=== PATIENT | male | born 1970 | race Caucasian/White ===

== ENCOUNTER 2020-09-13 18:43 | Inpatient (IN) | payer SELFPAY ==
[~2020-09-13] VITALS: Ht 165.1 cm; Wt 62.3 kg
[2020-09-13] MEDS ORDERED: ONDANSETRON PF 4 MG/2 ML VIAL. IVP ONE (19:00)
[2020-09-13] MEDS ORDERED: IV NORMAL SALINE 1,000ML 1,000 ML IV ONE (19:00)
[2020-09-13] MEDS ORDERED: FAMOTIDINE 20 MG/2 ML VIAL IVP ONE (19:00)
[2020-09-13] MEDS ORDERED: PANTOPRAZOLE IV 40 MG VIAL. IVP ONE (19:00)
--- NOTE | 2020-09-13 19:12 | PHYS DOC ---
General Adult EDM: Chief Complaint: ABDOMINAL PAIN HPI: HPI: 49-year-old male presents with epigastric abdominal pain. The patient started to have pain around 3:30 PM. He describes it "like I got punched in the stomach". It is a 5 out of 10 steady discomfort. He has had 4 episodes of vomiting. He denies blood or melena in the vomit. Patient denies fever or chills. He is an alcoholic and daily drinker. His last drink was yesterday evening. He denies history of pancreatitis. He has not had epigastric pain like this before. He denies significant history of reflux. Review of Systems: Review of Systems: Constitutional: Denies fever or chills Eyes: Denies change in visual acuity HENT: Denies nasal congestion or sore throat Respiratory: Denies cough or shortness of breath Cardiovascular: Denies chest pain or edema GI: Epigastric abdominal pain, nausea, vomiting. Denies bloody stools or diarrh ea : Denies dysuria Musculoskeletal: Denies back pain or joint pain Integument: Denies rash Neurologic: Denies headache, focal weakness or sensory changes Endocrine: Denies polyuria or polydipsia Lymphatic: Denies swollen glands Psychiatric: Denies depression or anxiety Current Medications: Current Meds: Current Medications Medications (Trade) Dose Ordered Sig/[facility] Start Time Stop Time Status Last Admin Dose Admin Famotidine (Pepcid Vial) 20 mg 1X ONCE 09/13/20 19:00 09/13/20 19:03 DC Ondansetron HCl (Zofran) 8 mg 1X ONCE 09/13/20 19:00 09/13/20 19:03 DC Pantoprazole Sodium (Protonix Vial) 40 mg 1X ONCE 09/13/20 19:00 09/13/20 19:03 DC Sodium Chloride 1,000 ml @ 1,000 mls/hr 1X ONCE 09/13/20 19:00 09/13/20 19:59 Allergies: Allergies: Allergies Coded Allergies Type Severity Reaction Last Updated Verified No Known Drug Allergies 09/13/20 No Physical Exam: PE: Constitutional: Well developed, well nourished, no acute distress, non-toxic appearance. [] HENT: Normocephalic, atraumatic, bilateral external ears normal, oropharynx moist, no oral exudates, nose normal. [] Eyes: PERRLA, EOMI, conjunctiva normal, no discharge. [] Neck: Normal range of motion, no tenderness, supple, no stridor. [] Cardiovascular:Heart rate regular rhythm, no murmur [] Lungs & Thorax: Bilateral breath sounds clear to auscultation [] Abdomen: Bowel sounds normal, soft, epigastric tenderness with guarding, no masses, no pulsatile masses. [] Skin: Warm, dry, no erythema, no rash. [] Back: No tenderness, no CVA tenderness. [] Extremities: No tenderness, no cyanosis, no clubbing, ROM intact, no edema. [] Neurologic: Bilateral upper extremity tremor. Alert and oriented X 3, normal motor function, normal sensory function, no focal deficits noted. [] Psychologic: Affect normal, judgement normal, mood normal. [] EKG: EKG: Sinus rhythm, rate 83, normal axis, no ST elevations or depressions. [] Radiology/Procedures: Radiology/Procedures: [] Impressions: CT abdomen and pelvis with contrast: Reason for examination: Epigastric abdominal pain. Daily alcohol. Helical images were obtained through the abdomen pelvis with intravenous administration of 75 cc Omnipaque 300. Reconstruction was performed in sagittal and coronal planes. Exposure: One or more of the following individualized dose reduction techniques were utilized for this examination: 1. Automated exposure control 2. Adjustment of the mA and/or kV according to patient size 3. Use of iterative reconstruction technique. Calcified granulomas seen posterior medially at the left lung base. The heart size is normal with no pericardial effusion. The liver shows diffuse fatty infiltration without a focal lesion. No abnormality seen at the spleen, adrenal glands or gallbladder. The pancreas shows no focal mass but there is peripancreatic fluid and possibly some pancreatic edema and these changes would be consistent with pancreatitis. Recommend clinical correlation. The colon shows wall thickening involving the transverse colon, descending colon and sigmoid colon which may reflect colitis. There is no diverticulosis or diverticulitis. No abnormality seen at the stomach or duodenum. Small intestinal tract shows no abnormal dilatation or obstruction. The kidneys show a hypodense lesion consistent with a cyst at the midpole of the left kidney measuring 8 mm in size. No renal calculi, hydronephrosis or obstructive uropathy is seen. No abnormality seen at the bladder, prostate gland or seminal vesicles. Severe degenerative disc disease at the L5-S1 level. No acute bony abnormality seen. IMPRESSION: Fatty liver. Prominent pancreas with some edema and peripancreatic fluid present consistent with pancreatitis. Recommend clinical correlation. Small cyst at the midpole the left kidney. Wall thickening in the transverse, descending and sigmoid colon which may reflect colitis. Severe degenerative disc disease at the L5-S1 disc level. Electronically signed by: Rere Crandall MD (09/13/2020 8:16 PM) [facility] DICTATED AND SIGNED BY: RERE CRADNALL MD DATE: 09/13/202015 CC: TRISTA FINLEY DO; PCP,NO ~ Heart Score: Risk Factors: Risk Factors: DM, Current or recent (<one month) smoker, HTN, HLP, family history of CAD, obesity. Risk Scores: Score 0 - 3: 2.5% MACE over next 6 weeks - Discharge Home Score 4 - 6: 20.3% MACE over next 6 weeks - Admit for Clinical Observation Score 7 - 10: 72.7% MACE over next 6 weeks - Early Invasive Strategies Course & Med Decision Making: Course & Med Decision Making Pertinent Labs and Imaging studies reviewed. (See chart for details) The patient's white count is normal. His labs are significant for a lipase of over 4000. This appears to be acute alcoholic pancreatitis. CT scan is pending. CT scan is consistent with pancreatitis. He also appears to have some colitis. I will admit the patient to the hospital. He is currently n.p.o. we have started him on D5 maintenance fluid. I spoke with Dr. Torres and he has accepted the patient for admission. [] Dragon Disclaimer: Iesha Disclaimer: This electronic medical record was generated, in whole or in part, using a voice recognition dictation system. Departure Departure: Impression: Primary Impression: Pancreatitis, alcoholic, acute Disposition: ADMITTED INPT THIS HOSP Admitting Physician: Nuzhat Torres Condition: STABLE Referrals: PCP,NO (PCP) TRISTA FINLEY DO Sep 13, 2020 19:12
--- NOTE | 2020-09-13 19:24 | RAD ---
Exam: Chest one view INDICATION: Chest pain TECHNIQUE: Frontal view of the chest Comparisons: None FINDINGS: The cardiomediastinal silhouette and pulmonary vessels are within normal limits. The lung and pleural spaces are clear. IMPRESSION: No acute cardiopulmonary process. Electronically signed by: Evan Walker MD (09/13/2020 7:21 PM) [id number]
[2020-09-13] MEDS ORDERED: CONTRAST GIVEN. MC PRN (19:30)
[2020-09-13] MEDS ORDERED: IOHEXOL 300 MG/ML 75 ML VIAL. IV ONE (19:30)
[2020-09-13 19:42] LABS: BASO % 0 % (0-3); CALCIUM 10.2 mg/dL (8.5-10.1); CREATININE 1.2 mg/dL (0.7-1.3); EOS % 0 % (0-3); GFR 64.9; HEMATOCRIT 46.7 % (39.0-53.0); LYMPH # 0.4 x10^3/uL (1.0-4.8); LYMPH % 5 % (24-48); MEAN CORPUSCULAR HEMOGLOBIN 35 pg (25-35); MEAN CORPUSCULAR HGB CONC 34 g/dL (31-37); MEAN CORPUSCULAR VOLUME 101 fL (79-100); MONO # 0.5 x10^3/uL (0.0-1.1); MONO % 6 % (0-9); NEUT # 7.9 x10^3uL (1.8-7.7); NEUT % 89 % (31-73); PLATELET COUNT 143 x10^3/uL (140-400); POTASSIUM 3.5 mmol/L (3.5-5.1); RED BLOOD COUNT 4.61 x10^6/uL (4.30-5.70); RED CELL DISTRIBUTION WIDTH 15.4 % (11.5-14.5); WHITE BLOOD COUNT 8.9 x10^3/uL (4.0-11.0)
[2020-09-13 19:50] LABS: TOTAL BILIRUBIN 1.1 mg/dL (0.2-1.0); TOTAL PROTEIN 8.1 g/dL (6.4-8.2)
[2020-09-13] MEDS ORDERED: MORPHINE SULFATE 4 MG/ML DISP.SYRIN. IV ONE (20:15)
[2020-09-13] MEDS ORDERED: IV DEXTROSE 5% - 0.9 % NACL 1,000 ML IV ONE (20:15)
--- NOTE | 2020-09-13 20:19 | RAD ---
CT abdomen and pelvis with contrast: Reason for examination: Epigastric abdominal pain. Daily alcohol. Helical images were obtained through the abdomen pelvis with intravenous administration of 75 cc Omnipaque 300. Reconstruction was performed in sagittal and coronal planes. Exposure: One or more of the following individualized dose reduction techniques were utilized for this examination: 1. Automated exposure control 2. Adjustment of the mA and/or kV according to patient size 3. Use of iterative reconstruction technique. Calcified granulomas seen posterior medially at the left lung base. The heart size is normal with no pericardial effusion. The liver shows diffuse fatty infiltration without a focal lesion. No abnormality seen at the spleen, adrenal glands or gallbladder. The pancreas shows no focal mass but there is peripancreatic fluid and possibly some pancreatic edema and these changes would be consistent with pancreatitis. Recommend clinical correlation. The colon shows wall thickening involving the transverse colon, descending colon and sigmoid colon which may reflect colitis. There is no diverticulosis or diverticulitis. No abnormality seen at the stomach or duodenum. Small intestinal tract shows no abnormal dilatation or obstruction. The kidneys show a hypodense lesion consistent with a cyst at the midpole of the left kidney measuring 8 mm in size. No renal calculi, hydronephrosis or obstructive uropathy is seen. No abnormality seen at the bladder, prostate gland or seminal vesicles. Severe degenerative disc disease at the L5-S1 level. No acute bony abnormality seen. IMPRESSION: Fatty liver. Prominent pancreas with some edema and peripancreatic fluid present consistent with pancreatitis. Recommend clinical correlation. Small cyst at the midpole the left kidney. Wall thickening in the transverse, descending and sigmoid colon which may reflect colitis. Severe degenerative disc disease at the L5-S1 disc level. Electronically signed by: Rere Boogie MD (09/13/2020 8:16 PM) BETTY
[2020-09-13] MEDS ORDERED: IV DEXTROSE 5 %-0.45 % NACL 1,000 ML IV ONE (21:15)
[2020-09-13] MEDS ORDERED: PIPERACILLIN/TAZOBACTAM 3.375 GM VIAL IV ONE (21:20)
[2020-09-13] MEDS ORDERED: IV NORMAL SALINE 50ML 50 ML ONE (21:20)
[2020-09-13] MEDS ORDERED: PIPERACILLIN/TAZOBACTAM 3.375 GM in IV NORMAL SALINE 50ML 50 ML IV ONE (21:30)
[2020-09-13] MEDS ORDERED: ACETAMINOPHEN 325 MG TABLET PO PRN (22:00)
--- NOTE | 2020-09-13 22:30 | NUR ---
The patient, JOSE LONG, 49 y/o, M admitted by JOSEPH TOMLIN MD, to room 117, was given written information regarding hospital policies, unit procedures and contact persons. Valuables were checked and left with the patient. Physical and social needs assessed. Medical history reviewed. Pt oriented to self, day, location and reason for being here. Pt hallucinating; making motions of eating and smoking. He frequently climbs out of bed with his eyes shut trying to "go because its 6:00." Bed alarm used and 1:1 supervision. Will continue to monitor.
[2020-09-13 23:15] VITALS: BP 176/94
[2020-09-13] MEDS: MORPHINE SULFATE 2 MG/ML DISP.SYRIN. IVP PRN (23:17)
[2020-09-14] VITALS (7 sets, daily range): BP systolic 121–165; BP diastolic 82–110
[2020-09-14] MEDS: ONDANSETRON PF 4 MG/2 ML VIAL. IVP PRN ×2 (00:30→07:24)
[2020-09-14] MEDS: MORPHINE SULFATE 2 MG/ML DISP.SYRIN. IVP PRN ×2 (01:48→07:24)
[2020-09-14] MEDS: HALOPERIDOL LACT 5 MG/ML VIAL. IVP PRN (09:52)
[2020-09-14] MEDS ORDERED: chlordiazePOXIDE HCL 25 MG CAPSULE PO PRN (10:45)
[2020-09-14] MEDS: cloNIDine HCL 0.1 MG TABLET PO PRN ×3 (10:54→13:21)
[2020-09-14] MEDS: diphenhydrAMINE 50 MG/ML VIAL IVP PRN ×2 (10:54→12:12)
[2020-09-14] MEDS: MVI, ADULT NO.4 WITH VIT K 10 ML, THIAMINE INJ 100 MG, FOLIC ACID INJ 1 MG in IV NORMAL... IV SCH (12:12)
[2020-09-14] MEDS: chlordiazePOXIDE HCL 25 MG CAPSULE PO PRN ×2 (13:20→16:13)
[2020-09-14 14:50] LABS: HEMATOCRIT 49.4 % (39.0-53.0); HEMOGLOBIN 16.9 g/dL (13.0-17.5); RED BLOOD COUNT 4.82 x10^6/uL (4.30-5.70); RED CELL DISTRIBUTION WIDTH 15.2 % (11.5-14.5); WHITE BLOOD COUNT 9.8 x10^3/uL (4.0-11.0)
[2020-09-14] MEDS ORDERED: LABETALOL 20 MG/4 ML DISP.SYRIN. IVP PRN (15:15)
--- NOTE | 2020-09-14 15:28 | HP ---
ADMIT DATE: 09/13/2020 HISTORY OF PRESENT ILLNESS: The patient is a 49-year-old male patient who came to the Emergency Room complaining of abdominal pain, mostly in the epigastric area. He started having pain around 3:30 p.m., described it "like I got punched in the stomach." He rated it as 5/10, stated discomfort, has had 4 episodes of vomiting. He denies any blood or melena in the vomitus. He denied any fever or chills. He is an alcoholic and daily drinker. His last drink was the day before yesterday. He denied any history of pancreatitis. He has not had epigastric pain like this before. Denied any significant history of acid reflux. He was extensively investigated in the Emergency Room and has had lab work done including a CBC and a CMP. His CBC was unremarkable. His chemistry showed that the patient has extremely elevated serum lipase of 4138 and his chest x-ray was unremarkable; however, CT scan of the abdomen and pelvis showed the patient has fatty liver. He has also prominent pancreas with some edema and peripancreatic fluid present consistent with pancreatitis, a small cyst at the mid pole of the left kidney as well as thickening of the transverse, descending and sigmoid colon, which may reflect colitis. He has also severe degenerative disk disease at L5-S1 disk level. He was admitted with acute pancreatitis, fatty liver and also acute colitis. We will keep him n.p.o., start him on IV fluid, banana bag, alcohol withdrawal protocol as well as IV Zosyn for possible acute colitis. PAST MEDICAL HISTORY: Unobtainable. PAST SURGICAL HISTORY: Also unobtainable. FAMILY HISTORY: Unremarkable. SOCIAL HISTORY: He is . Apparently, his drinks with him. ALLERGIES: He has no known drug allergies. MEDICATIONS: He is currently on no medications at home. PHYSICAL EXAMINATION: GENERAL: On arrival to the Emergency Room, the patient was tachypneic, was tachycardic, hypertensive, but there was no pallor, jaundice or cyanosis. No lymphadenopathy, no thyromegaly. No jugular venous distention. No lower limb edema. VITAL SIGNS: His heart rate on admission was 108, blood pressure was 164/108, temperature was 96.8, respiratory rate 20, and oxygen saturation was 94%. HEAD, EYES, EARS, NOSE AND THROAT: Showed normocephalic, atraumatic. NECK: Supple. HEART: Showed normal first and second heart sounds. No gallop, rub or murmur. CHEST: Clear to auscultation. No crepitation or rhonchi. ABDOMEN: Distended. Tenderness mostly in the epigastric area. No guarding, however, or rigidity. No organomegaly. No palpable pulsatile masses. NEUROLOGIC: On admission, he was alert and oriented x 3. He has bilateral upper extremity tremors. He has normal motor function, normal sensory function. His affect, judgment and mood were apparently normal. He has had an EKG, which showed that he was in sinus rhythm at a rate of 83 with normal axis, no ST-segment elevation or depression. CT scan of the abdomen and pelvis showed fatty liver, prominent pancreas with some edema and peripancreatic fluid present consistent with pancreatitis. He has also wall thickening of the transverse, descending and sigmoid colon which may reflect colitis, has severe degenerative disk disease at L5-S1 disk level. ASSESSMENT AND PLAN: The patient was admitted with acute alcohol-induced pancreatitis, alcohol withdrawal protocol and alcoholism. He was given IV fluid, morphine, piperacillin and tazobactam, kept n.p.o., started him on alcohol withdrawal protocol. We will monitor his lab works closely and adjust medication accordingly. JOSEPH TOMLIN MD DR: DALE/mikki JOB#: [id number] / [id number]
[2020-09-14 15:54] LABS: CALCIUM 8.5 mg/dL (8.5-10.1); GFR 80.1; POTASSIUM 3.5 mmol/L (3.5-5.1)
[2020-09-14 16:01] LABS: ALBUMIN 3.1 g/dL (3.4-5.0); ALBUMIN/GLOBULIN RATIO 0.9 (1.0-1.7); MAGNESIUM 1.3 mg/dL (1.8-2.4); TOTAL BILIRUBIN 1.7 mg/dL (0.2-1.0); TOTAL PROTEIN 6.4 g/dL (6.4-8.2)
--- NOTE | 2020-09-14 17:16 | EKG ---
[address] [address] Test Date: 2020-09-13 Test Time: 19:18:02 Pat Name: JOSE LONG Department: Room: 117 A Gender: M Document Manager: : 1970 Requested By: TRISTA FINLEY Order Number: [id number] Reading MD: Measurements Intervals [place] Rate: 83 P: -47 MS: 132 QRS: 65 QRSD: 82 T: 43 QT: 392 QTc: 461 Interpretive Statements SINUS RHYTHM OTHERWISE NORMAL ECG RI6.02 Compared to ECG 09/13/2020 19:16:14 No significant changes
[2020-09-14] MEDS: PIPERACILLIN/TAZOBACTAM 3.375 GM in IV NORMAL SALINE 50ML 50 ML IV SCH (18:27)
--- NOTE | 2020-09-14 20:03 | PN ---
DATE: 09/14/2020 SUBJECTIVE: The patient continued to be extremely restless, agitated, hallucination, picks things that are not there. He was treated with multiple doses of clonidine, Ativan and Haldol as well as morphine. PHYSICAL EXAMINATION: GENERAL: When I examined him this afternoon, he was resting flat, sleeping comfortably, in no apparent distress. There was no pallor, jaundice, cyanosis or thyromegaly. No jugular venous distention or limb edema. VITAL SIGNS: His heart rate was 108, blood pressure was 161/93, temperature was 96.8, respiratory rate was 20 and oxygen saturation was 93% on room air. HEAD, EYES, EARS, NOSE AND THROAT: Showed normocephalic, atraumatic. NECK: Supple. HEART: Showed normal first and second heart sounds. No gallop, rub or murmur. CHEST: Showed central trachea, equal bilateral chest expansion, air entry, vesicular sounds. No crepitation or rhonchi. ABDOMEN: Distended, soft, nontender. NEUROLOGIC: He was extremely obtunded. His intake and output were incompletely recorded. LABORATORY DATA: His lab work still pending at the time of this dictation. ASSESSMENT: Acute alcohol-induced pancreatitis, alcoholism with alcohol withdrawal. Has also acute colitis. PLAN: To continue also with Zosyn 3.375 g IV. I would continue to monitor his lab work, particularly his lipase. His agitation improved and has no pain. We can start him on a clear liquid diet and advance as tolerated. JOSEPH TOMLIN MD DR: DALE/mikki JOB#: [id number] / [id number]
[2020-09-15] MEDS: PIPERACILLIN/TAZOBACTAM 3.375 GM in IV NORMAL SALINE 50ML 50 ML IV SCH ×4 (00:21→17:50)
[2020-09-15] MEDS: HALOPERIDOL LACT 5 MG/ML VIAL. IVP PRN ×2 (02:00→17:44)
--- NOTE | 2020-09-15 02:07 | NUR ---
PT with extreme agitation. PT trying to punch and kick multiple staff members. PT given PRNs available. PT less agitated but still intermittently combative. PT will sleep for a few minutes and then wake up swinging his fists and trying to get out of bed.
[2020-09-15 06:11] VITALS: BP 109/80
[2020-09-15 06:46] LABS: HEMATOCRIT 48.6 % (39.0-53.0); HEMOGLOBIN 16.3 g/dL (13.0-17.5); RED BLOOD COUNT 4.74 x10^6/uL (4.30-5.70); RED CELL DISTRIBUTION WIDTH 15.6 % (11.5-14.5); WHITE BLOOD COUNT 11.2 x10^3/uL (4.0-11.0)
[2020-09-15 07:08] LABS: ALBUMIN 2.6 g/dL (3.4-5.0); ALBUMIN/GLOBULIN RATIO 0.7 (1.0-1.7); CALCIUM 7.8 mg/dL (8.5-10.1); CREATININE 1.3 mg/dL (0.7-1.3); GFR 59.2; MAGNESIUM 1.3 mg/dL (1.8-2.4); POTASSIUM 3.1 mmol/L (3.5-5.1); TOTAL BILIRUBIN 1.1 mg/dL (0.2-1.0); TOTAL PROTEIN 6.2 g/dL (6.4-8.2)
[2020-09-15] MEDS: MVI, ADULT NO.4 WITH VIT K 10 ML, THIAMINE INJ 100 MG, FOLIC ACID INJ 1 MG in IV NORMAL... IV SCH (07:54)
[2020-09-15] MEDS: POTASSIUM CHLORIDE 10MEQ 100 ML IV SCH ×4 (08:28→11:11)
[2020-09-15 10:29] VITALS: BP 94/70
--- NOTE | 2020-09-15 12:05 | NUR ---
NURSING NOTE PT WAS ACTING AGGRESSIVE TOWARD STAFF, PUTTING UP FIST, NOT RE-DIRECTABLE AT THIS TIME, DANGER TO SELF, SLURRING WORDS, UNABLE TO FOLLOW COMMANDS. PT ON ALCOHOL WITHDRAWAL PROTOCOL. PT GIVEN PRN 2 MG OF ATIVAN TO HELP PT RELAX. WILL CONTINUE TO MONITOR. SAMARIA MCCLAIN.
[2020-09-15 14:27] VITALS: BP 107/74
[2020-09-15] MEDS ORDERED: IV NORMAL SALINE 1,000ML 1,000 ML IV ONE (15:45)
--- NOTE | 2020-09-15 16:02 | NUR ---
NURSING NOTE PT HR INCREASED. DR TOMLIN NOTIFIED. ORDER OBTAINED FOR IV BOLUS 1L. PT CIWA CURRENTLY 10. WILL ADMINISTER PRN 2MG ATIVAN FOR AGITATION. SAMARIA MCCLAIN.
--- NOTE | 2020-09-15 17:44 | NUR ---
NURSING NOTE PT VERY AGITATED AT THIS TIME, ATTEMPTING TO PULL OUT IV, RESTLESS IN THE BED, CONFUSED. PT HAND MITTENS PLACED FOR PROTECTION AND IV MAINTENANCE, PRN HALDOL GIVEN FOR AGITATION AND RESTLESSNESS. WILL CONTINUE TO MONITOR. SAMARIA MCCLAIN.
[2020-09-15 17:47] VITALS: BP 110/78
--- NOTE | 2020-09-15 19:32 | PN ---
DATE: 09/15/2020 SUBJECTIVE: The patient is resting, slightly propped up, sleeping comfortably. Apparently, he continued to be agitated, restless and continued to require Ativan for alcohol withdrawal protocol. PHYSICAL EXAMINATION: GENERAL: When I examined him, he looked well and was clearly in no apparent respiratory distress. No pallor, jaundice, cyanosis or thyromegaly. No jugular venous distention. No limb edema. VITAL SIGNS: His heart rate was 125, blood pressure was 94/70, temperature was 98.1, respiratory rate was 22 and oxygen saturation was 93%. HEAD, EYES, EARS, NOSE AND THROAT: Showed normocephalic, atraumatic. NECK: Supple. HEART: Showed normal first and second heart sounds with no gallop or murmur. CHEST: Clear to auscultation. No crepitation or rhonchi. ABDOMEN: Distended, soft, nontender. NEUROLOGIC: He was sleepy, but arousable. All his cranial nerves are intact. He moves extremities without difficulty. His intake was 1125, output was 500. LABORATORY DATA: His white cell count was 11,200, hemoglobin 16, hematocrit 48, MCV 103 and platelet count of 50,000. His chemistry showed a serum sodium 136, potassium 3.1, chloride 99, bicarbonate 25, anion gap of 12, BUN 13, creatinine 1.3, estimated GFR was 59 mL per minute. His glucose was 97, calcium was 7.8. Total bilirubin, AST, ALT, alkaline phosphatase were normal. Total protein 6.2, albumin was 2.6. His serum lipase is trending down, although it is still high at 3858. ASSESSMENT: 1. Acute alcohol-induced pancreatitis. 2. Alcoholism and alcohol withdrawal. 3. Acute colitis. 4. Hypokalemia. The patient continues to be on alcohol withdrawal protocol. He continues to be on Zosyn 3.375 g IV every 6 hours. Continue with the banana bag. We will monitor his electrolytes and hopefully if his lipase normalize tomorrow, we can start him on a clear liquid and advance diet as tolerated. JOSEPH TOMLIN MD DR: DALE/mikki JOB#: [id number] / [id number]
[2020-09-15 20:28] VITALS: BP 92/60
[2020-09-15] MEDS: LACTOBACILLUS RHAMNOSUS GG 1 CAPSULE. PO SCH (21:00)
[2020-09-15] MEDS: POTASSIUM CL 40MEQ IN 0.9%NACL 1,000 ML IV SCH (21:51)
[2020-09-15 22:59] VITALS: BP 100/68
[2020-09-16] MEDS: PIPERACILLIN/TAZOBACTAM 3.375 GM in IV NORMAL SALINE 50ML 50 ML IV SCH ×4 (00:01→17:26)
--- NOTE | 2020-09-16 04:31 | NUR ---
Mitts removed at 2129 for replacement of IV. PT has been less agitated tonight, requiring less PRN Ativan. PT stated he wants to go home. PT unable to stand unassisted at this time. PT able to express need to void; however, this occurs after he has voided/following BMs. PT mostly cooperative. PT states he has had this cough for 15 years due to smoking. PT redirected when trying to climb out of bed.
[2020-09-16] MEDS: MVI, ADULT NO.4 WITH VIT K 10 ML, THIAMINE INJ 100 MG, FOLIC ACID INJ 1 MG in IV NORMAL... IV SCH (06:59)
[2020-09-16] MEDS: LACTOBACILLUS RHAMNOSUS GG 1 CAPSULE. PO SCH ×2 (07:04→21:33)
[2020-09-16 07:27] VITALS: BP 110/71
--- NOTE | 2020-09-16 08:47 | NUR ---
NURSING NOTE PT MORE AWAKE NOW, A&O TO NAME, YEAR, AND PLACE. PT IS CALM AND COOPERATIVE WITH CARES THIS AM. PT UP AND TO THE SHOWER, BRUSHED TEETH, LINEN CHANGE, HAD LARGE BM. PT CURRENTLY RESTING IN BED, CIWA SCORE OF 8 THIS AM. PT VERBALIZED THAT HE WANTS TO GO HOME TODAY. PT WAS NOT SURE WHY HE WAS HERE, EDUCATED PT ON PANCREATITIS AND ALCOHOL WITHDRAWAL. WILL CONTINUE TO MONITOR. SAMARIA MCCLAIN.
--- NOTE | 2020-09-16 10:14 | NUR ---
NURSING NOTE PT SITTING UP IN THE BED, PT HAS PERSISTENT/CONTINUOS COUGH AND SPITTING UP SECRETIONS. DR TOMLIN NOTIFIED. ORDER OBTAINED FOR CHEST XRAY. PT IV FLUIDS HELD AT THIS TIME FOR POTENTIAL FLUID OVERLOAD. SAMARIA MCCLAIN.
[2020-09-16 10:37] LABS: ALBUMIN 2.2 g/dL (3.4-5.0); ALBUMIN/GLOBULIN RATIO 0.6 (1.0-1.7); CALCIUM 7.1 mg/dL (8.5-10.1); CREATININE 1.3 mg/dL (0.7-1.3); GFR 59.2; POTASSIUM 3.2 mmol/L (3.5-5.1); TOTAL BILIRUBIN 0.9 mg/dL (0.2-1.0); TOTAL PROTEIN 5.9 g/dL (6.4-8.2)
[2020-09-16] MEDS ORDERED: POTASSIUM CHLORIDE 20 MEQ TABLET.ER. PO ONE ×2 (11:00→13:30)
[2020-09-16] MEDS: POTASSIUM CL 40MEQ IN 0.9%NACL 1,000 ML IV SCH (11:05)
--- NOTE | 2020-09-16 12:52 | NUR ---
NURSING NOTE PT INCREASED WOB, PT VITALS OBTAINED, OXYGEN 84%, PT PLACED ON 2L OF OXYGEN. DR TOMLIN HERE, NOTIFIED. WILL ASSESS PT. SAMARIA MCCLAIN.
[2020-09-16 12:57] VITALS: BP 129/85
--- NOTE | 2020-09-16 13:08 | NUR ---
NURSING NOTE CONSULT CONSULT CARDIOLOGY CALLED FOR TACHYCARDIA AND POSSIBLE HEART FAILURE. SAMARIA MCCLAIN.
--- NOTE | 2020-09-16 13:12 | RAD ---
Examination: PORTABLE CHEST 1V History: Reason: COUGH, SOA, PHLEGM / Spl. Instructions: / History: Comparison/Correlation: 09/13/2020 AP view of the chest Findings: Upright portable frontal view chest was obtained. Heart size and pulmonary vessels are normal. No infiltrate or pleural effusion. No pneumothorax. Bony structures unremarkable Impression: No active disease. Electronically signed by: Hany Rene MD (09/16/2020 1:09 PM) [id number]
[2020-09-16] MEDS ORDERED: ALBUTEROL SULFATE 2.5 MG/3 ML NEBU. NEB PRN (13:15)
[2020-09-16 13:25] LABS: BASO % 0 % (0-3); EOS % 0 % (0-3); HEMATOCRIT 38.7 % (39.0-53.0); HEMOGLOBIN 13.1 g/dL (13.0-17.5); LYMPH # 0.3 x10^3/uL (1.0-4.8); LYMPH % 4 % (24-48); MEAN CORPUSCULAR HEMOGLOBIN 35 pg (25-35); MEAN CORPUSCULAR HGB CONC 34 g/dL (31-37); MEAN CORPUSCULAR VOLUME 103 fL (79-100); MONO # 0.7 x10^3/uL (0.0-1.1); MONO % 8 % (0-9); NEUT # 7.9 x10^3uL (1.8-7.7); NEUT % 88 % (31-73); PLATELET COUNT 59 x10^3/uL (140-400); RED BLOOD COUNT 3.78 x10^6/uL (4.30-5.70); RED CELL DISTRIBUTION WIDTH 15.4 % (11.5-14.5); WHITE BLOOD COUNT 8.9 x10^3/uL (4.0-11.0)
[2020-09-16] MEDS: IPRATRPIUM/ALBUTEROL 0.5/2.5MG 3 ML NEBU. NEB SCH ×2 (13:28→20:59)
[2020-09-16] MEDS ORDERED: methylPREDNISolone SOD SUCC PF 125 MG/2 ML VIAL. IV ONE (13:30)
[2020-09-16] MEDS ORDERED: FUROSEMIDE 40 MG/4 ML VIAL IVP ONE (13:30)
[2020-09-16] MEDS ORDERED: IPRATRPIUM/ALBUTEROL 0.5/2.5MG 3 ML NEBU. ONE (13:42)
[2020-09-16 13:51] LABS: BGAS PH 7.32 (7.35-7.46)
--- NOTE | 2020-09-16 13:53 | EKG ---
[address] [address] Test Date: 2020-09-16 Test Time: 13:12:39 Pat Name: JOSE LONG Department: Room: 117 A Gender: M Chain Saw Driver: : 1970 Requested By: JOSEPH TOMLIN Order Number: [id number] Reading MD: Measurements Intervals [place] Rate: 138 P: -53 TX: 134 QRS: 76 QRSD: 76 T: 61 QT: 272 QTc: 412 Interpretive Statements SUPRAVENTRICULAR TACHYCARDIA QRS(T) CONTOUR ABNORMALITY CONSIDER ANTEROLATERAL MYOCARDIAL DAMAGE CONSIDER INFERIOR MYOCARDIAL DAMAGE POSSIBLY ABNORMAL ECG RI6.01 No previous ECG available for comparison
[2020-09-16 14:04] VITALS: BP 136/88
[2020-09-16] MEDS: ACETAMINOPHEN 325 MG TABLET PO PRN (14:06)
--- NOTE | 2020-09-16 16:00 | NUR ---
NURSING NOTE DR TOMLIN NOTIFIED OF ELEVATED DDIMER. PT REEVALUATED AT BEDSIDE WITH PHYSICIAN. PT CURRENTLY RESTING COMFORTABLY, NO ORDERS OBTAINED. SAMARIA MCCLAIN.
--- NOTE | 2020-09-16 16:59 | PN ---
DATE: 09/16/2020 SUBJECTIVE: The patient is resting, propped up, clearly very tachypneic, hypoxic, tachycardic. He has had recurrent bouts of cough. Chest examination showed he is tight and wheezy. PHYSICAL EXAMINATION: GENERAL: When I examined him, there was no pallor, jaundice or cyanosis. No lymphadenopathy, no thyromegaly. No jugular venous distention. No lower limb edema. VITAL SIGNS: However, his heart rate was 146, blood pressure was 129/85, temperature was 99.2, respiratory rate was 28 and his oxygen saturation was only 90% on 2 liters of oxygen. HEAD, EYES, EARS, NOSE AND THROAT: Normocephalic, atraumatic. NECK: Supple. HEART: Showed distant first and second heart sounds. No gallop, rub or murmur. CHEST: Shows central trachea, equally reduced expansion, reduced air entry, vesicular sounds with bilateral scattered rhonchi. I could not appreciate any crepitation. ABDOMEN: Distended, soft with tenderness mostly in epigastric area. NEUROLOGIC: He is lethargic, but arousable. All cranial nerves are intact. He moves extremities without difficulty. His intake over the last 24 hours was 1270, output was 750. LABORATORY DATA: His CBC yesterday showed a white cell count of 11,200, hemoglobin 16, hematocrit 48, MCV 103 and platelet count of 50,000. His serum sodium was 139, potassium 3.2, chloride 104, bicarbonate 23, anion gap of 12, BUN 16, creatinine 1.3, estimated GFR was 59 mL per minute, his glucose 101, calcium 7.1. Total bilirubin, AST, ALT, alkaline phosphatase were normal. Total protein 5.9, albumin 2.2 and his lipase is down to 1717. His chest x-ray showed markedly hyperinflated lungs, cardiomegaly and upper lobe cephalization consistent probably with acute pulmonary edema with chronic obstructive pulmonary disease exacerbation. ASSESSMENT AND PLAN: Acute alcohol-induced pancreatitis, resolving. The patient has now either aspiration pneumonia or chronic obstructive pulmonary disease exacerbation versus acute diastolic congestive heart failure. We held all his IV fluid. We will start him on Solu-Medrol 125 mg IV stat and then 40 mg every 8 hours. We will treat him with Lasix 40 mg once a day. Repeat blood gases, CBC, BMP. We will check his 12-lead EKG, troponin as well as D-dimer and BNP and he was started on DuoNeb and albuterol 2.5 mg by nebulizer every 2 hours as needed. I have also consulted the Cardiology team and I did speak with the bicycle repair technician to stat read his chest x-ray to assist with his management. JOSEPH TOMLIN MD DR: DALE/mikki JOB#: [id number] / [id number]
--- NOTE | 2020-09-16 19:14 | NUR ---
PT appeared to be resting comfortably with television turned on while making walking rounds with RN. Mounika Becerra CNA (1:1 sitter) in room.
[2020-09-16 19:48] VITALS: BP 117/81
[2020-09-16] MEDS: POTASSIUM CHLORIDE 20 MEQ TABLET.ER. PO SCH (21:33)
[2020-09-16] MEDS: methylPREDNISolone SOD SUCC PF 40 MG/ML VIAL. IV SCH (21:33)
[2020-09-17] MEDS: PIPERACILLIN/TAZOBACTAM 3.375 GM in IV NORMAL SALINE 50ML 50 ML IV SCH ×2 (00:15→05:57)
[2020-09-17 00:36] VITALS: BP 118/78
[2020-09-17] MEDS: ACETAMINOPHEN 325 MG TABLET PO PRN (01:13)
[2020-09-17] MEDS: NICOTINE 14MG PATCH. TD PRN ×2 (01:48→08:53)
[2020-09-17] MEDS: IPRATRPIUM/ALBUTEROL 0.5/2.5MG 3 ML NEBU. NEB SCH ×2 (04:48→10:04)
[2020-09-17 05:51] VITALS: BP 123/80
[2020-09-17] MEDS: methylPREDNISolone SOD SUCC PF 40 MG/ML VIAL. IV SCH (05:57)
[2020-09-17 06:30] LABS: BASO % 0 % (0-3); EOS % 0 % (0-3); HEMATOCRIT 36.8 % (39.0-53.0); HEMOGLOBIN 12.4 g/dL (13.0-17.5); LYMPH # 0.2 x10^3/uL (1.0-4.8); LYMPH % 3 % (24-48); MEAN CORPUSCULAR HEMOGLOBIN 35 pg (25-35); MEAN CORPUSCULAR HGB CONC 34 g/dL (31-37); MEAN CORPUSCULAR VOLUME 104 fL (79-100); MONO # 0.4 x10^3/uL (0.0-1.1); MONO % 5 % (0-9); NEUT # 7.5 x10^3uL (1.8-7.7); NEUT % 92 % (31-73); PLATELET COUNT 75 x10^3/uL (140-400); RED BLOOD COUNT 3.54 x10^6/uL (4.30-5.70); RED CELL DISTRIBUTION WIDTH 15.7 % (11.5-14.5); WHITE BLOOD COUNT 8.1 x10^3/uL (4.0-11.0)
[2020-09-17 06:38] LABS: ALBUMIN 2.4 g/dL (3.4-5.0); ALBUMIN/GLOBULIN RATIO 0.6 (1.0-1.7); CREATININE 1.2 mg/dL (0.7-1.3); GFR 64.9; TOTAL BILIRUBIN 0.9 mg/dL (0.2-1.0); TOTAL PROTEIN 6.6 g/dL (6.4-8.2)
[2020-09-17] MEDS ORDERED: MAGNESIUM SULFATE 1GM 100 ML IV ONE (07:45)
--- NOTE | 2020-09-17 08:15 | PDOC2 ---
CARDIAC CONSULT DATE OF CONSULT DOS: DATE: 09/17/20 TIME: 08:11 REASON FOR CONSULT Reason for Consult CHF REFERRING PHYSICIAN Referring Physician Dr. Torres SOURCE Source: Chart review, Patient HPI History of Present Illness This is a 49 yo male who presented secondary to abdominal pain and vomiting. Further imaging notable for pancreatitis. Yesterday, developed some shortness of breath. Consult obtained for possible CHF due to fluid overload as patient had received multiple liters of fluid due to pancreatitis and ETOH withdrawal. IV Lasix was administered. Patient diuresed and is feel well this morning. PAST MEDICAL HISTORY Hepatobiliary: Other (pancreatitis ) Psych: Addictions (ETOH) PAST SURGICAL HISTORY Past Surgical History: Other (jaw surgery ) FAMILY HISTORY Family History: Heart Disease, High Cholestrol, Hypertension SOCIAL HISTORY ALCOHOL: heavy Drugs: Other (h/o heavy polysubstance abuse but has been clean since 1998) Lives: with Family CURRENT MEDICATIONS Current Medications Current Medications Sodium Chloride 1,000 ml @ 1,000 mls/hr 1X ONCE IV Last administered on 09/13at 19:12; Start 09/13/20 at 19:00; Stop 09/13/20 at 19:59; Status DC Ondansetron HCl (Zofran) 8 mg 1X ONCE IVP Last administered on 09/13/20at 19:15; Start 09/13/20 at 19:00; Stop 09/13/20 at 19:03; Status DC Pantoprazole Sodium (Protonix Vial) 40 mg 1X ONCE IVP Last administered on 09/13/20at 19:18; Start 09/13/20 at 19:00; Stop 09/13/20 at 19:03; Status DC Famotidine (Pepcid Vial) 20 mg 1X ONCE IVP Last administered on 09/13/20at 19:16; Start 09/13/20 at 19:00; Stop 09/13/20 at 19:03; Status DC Iohexol (Omnipaque 300 Mg/ml) 75 ml 1X ONCE IV Last administered on 09/13/20at 19:41; Start 09/13/20 at 19:30; Stop 09/13/20 at 19:31; Status DC Info (Do NOT chart on this entry -- for MONITORING) 1 each PRN DAILY PRN MC SEE COMMENTS; Start 09/13/20 at 19:30; Stop 09/15/20 at 19:29; Status DC Dextrose/Sodium Chloride 1,000 ml @ 75 mls/hr 1X ONCE IV Last administered on 09/15/20at 00:00; Start 09/13/20 at 20:15; Stop 09/14/20 at 09:34; Status DC Morphine Sulfate (Morphine 4mg Syringe) 4 mg 1X ONCE IV Last administered on 09/13/20at 21:12; Start 09/13/20 at 20:15; Stop 09/13/20 at 20:21; Status DC Dextrose/Sodium Chloride 1,000 ml @ 75 mls/hr 1X ONCE IV Last administered on 09/13/20at 21:07; Start 09/13/20 at 21:15; Stop 09/14/20 at 10:34; Status DC Piperacillin Sod/ Tazobactam Sod 3.375 gm/Sodium Chloride 50 ml @ 100 mls/hr 1X ONCE IV Last administered on 09/13/20at 21:22; Start 09/13/20 at 21:30; Stop 09/13/20 at 21:59; Status DC Sodium Chloride 50 ml @ As Directed STK-MED ONCE .ROUTE ; Start 09/13/20 at 21:20; Stop 09/13/20 at 21:21; Status DC Piperacillin Sod/ Tazobactam Sod (Zosyn) 3.375 gm STK-MED ONCE IV ; Start 09/13/20 at 21:20; Stop 09/13/20 at 21:21; Status DC Ondansetron HCl (Zofran) 4 mg PRN Q4HRS PRN IVP NAUSEA/VOMITING Last administered on 09/14/20at 07:24; Start 09/13/20 at 22:00; Stop 09/14/20 at 21:59; Status DC Morphine Sulfate (Morphine 2mg Syringe) 2 mg PRN Q2HR PRN IVP PAIN Last administered on 09/14/20at 07:24; Start 09/13/20 at 22:00; Stop 09/14/20 at 21:59; Status DC Acetaminophen (Tylenol) 650 mg PRN Q4HRS PRN PO FEVER > 100.3'F; Start 09/13/20 at 22:00; Stop 09/14/20 at 21:59; Status DC Lorazepam (Ativan Inj) 2 mg PRN Q1HR PRN IVP agitation,w/drawal 1st choice Last administered on 09/16/20at 14:05; Start 09/13/20 at 22:00 Haloperidol Lactate (Haldol) 5 mg PRN Q4HRS PRN IVP AGITATION, 2nd choice Last administered on 09/15/20at 17:44; Start 09/14/20 at 09:45 Multivitamins/ Minerals 10 ml/ Thiamine HCl 100 mg/Folic Acid 1 mg/Sodium Chloride 1,011.2 ml @ 100 mls/ hr DAILY IV Last administered on 09/16/20at 06:59; Start 09/14/20 at 12:00; Stop 09/20/20 at 11:59 Chlordiazepoxide (Librium) 50 mg PRN Q1HR PRN PO For CIWA 8-14; Start 09/14/20 at 10:45; Stop 09/17/20 at 07:55; Status DC Chlordiazepoxide (Librium) 100 mg PRN Q1HR PRN PO For CIWA 15 or greater Last administered on 09/14/20at 16:13; Start 09/14/20 at 10:45; Stop 09/17/20 at 07:55; Status DC Lorazepam (Ativan Inj) 4 mg PRN Q1HR PRN IV For CIWA 15 or greater Last administered on 09/15/20at 06:00; Start 09/14/20 at 10:45 Diphenhydramine HCl (Benadryl) 25 mg PRN Q15MIN PRN IVP EPS symptoms 2'Haldol admin Last administered on 09/14/20at 12:12; Start 09/14/20 at 10:45 Clonidine HCl (Catapres) 0.1 mg PRN Q1HR PRN PO SBP>180 OR DBP>100, MR X 3 Last administered on 09/14/20at 13:21; Start 09/14/20 at 10:45; Stop 09/17/20 at 07:55; Status DC Piperacillin Sod/ Tazobactam Sod 3.375 gm/Sodium Chloride 50 ml @ 100 mls/hr Q6HRS IV Last administered on 09/17/20at 05:57; Start 09/14/20 at 18:00; Stop 09/17/20 at 07:55; Status DC Labetalol HCl (Normodyne) 20 mg PRN Q4HRS PRN IVP HYPERTENSION Last administered on 09/14/20at 15:23; Start 09/14/20 at 15:15 Potassium Chloride 100 ml @ 100 mls/hr Q1H IV Last administered on 09/15/20at 11:11; Start 09/15/20 at 08:30; Stop 09/15/20 at 12:29; Status DC Lactobacillus Rhamnosus (Culturelle) 1 cap BID PO Last administered on 09/16/20at 21:33; Start 09/15/20 at 21:00; Stop 09/17/20 at 07:47; Status DC Sodium Chloride 1,000 ml @ 1,000 mls/hr 1X ONCE IV Last administered on 09/15/20at 16:07; Start 09/15/20 at 15:45; Stop 09/15/20 at 16:44; Status DC Potassium Chloride/Sodium Chloride 1,000 ml @ 75 mls/hr [id number] IV Last administered on 09/15/20at 21:51; Start 09/15/20 at 21:45; Stop 09/16/20 at 17:38; Status DC Potassium Chloride (Klor-Con) 40 meq 1X ONCE PO Last administered on 0at 11:12; Start 09/16/20 at 11:00; Stop 09/16/20 at 11:01; Status DC Albuterol/ Ipratropium (Duoneb) 3 ml RTQID NEB Last administered on 09/17/20at 04:48; Start 09/16/20 at 16:00 Furosemide (Lasix) 40 mg 1X ONCE IVP Last administered on 09/16/20at 13:31; Start 09/16/20 at 13:30; Stop 09/16/20 at 13:31; Status DC Potassium Chloride (Klor-Con) 40 meq 1X ONCE PO Last administered on 09/16/20at 13:32; Start 09/16/20 at 13:30; Stop 09/16/20 at 13:31; Status DC Methylprednisolone Sodium Succinate (SOLU-Medrol 125MG VIAL) 125 mg 1X ONCE IV Last administered on 09/16/20at 13:31; Start 09/16/20 at 13:30; Stop 09/16/20 at 13:31; Status DC Methylprednisolone Sodium Succinate (SOLU-Medrol 40MG VIAL) 40 mg Q8HRS IV Last administered on 09/17/20at 05:57; Start 09/16/20 at 22:00 Linezolid 300 ml @ 300 mls/hr Q12H IV Last administered on 09/17/20at 01:13; Start 09/16/20 at 13:00; Stop 09/17/20 at 07:55; Status DC Albuterol Sulfate (Ventolin) 2.5 mg PRN Q2HR PRN NEB SHORTNESS OF BREATH; Start 09/16/20 at 13:15 Albuterol/ Ipratropium (Duoneb) 3 ml STK-MED ONCE .ROUTE ; Start 09/16/20 at 13:42; Stop 09/16/20 at 13:42; Status DC Acetaminophen (Tylenol) 650 mg PRN Q6HRS PRN PO PAIN FEVER Last administered on 09/17/20at 01:13; Start 09/16/20 at 14:15 Potassium Chloride (Klor-Con) 20 meq TID PO Last administered on 09/16/20at 21:33; Start 09/16/20 at 21:00 Nicotine (Nicoderm Cq 14mg Patch) 1 patch PRN DAILY PRN TD SMOKING CESSATION Last administered on 09/17/20at 01:48; Start 09/17/20 at 01:30 Magnesium Sulfate 100 ml @ 100 mls/hr 1X ONCE IV ; Start 09/17/20 at 07:45; Stop 09/17/20 at 08:44 ALLERGIES Allergies: Coded Allergies: No Known Drug Allergies (Unverified , 09/13/20) ROS Review of Systems 14 point ROS conducted with pertinent positives noted above in HPI PHYSICAL EXAM General: Alert, Oriented X3, Cooperative, No acute distress HEENT: Atraumatic, Mucous membr. moist/pink Lungs: Clear to auscultation Heart: Regular rate (tele ST) Abdomen: Soft, No tenderness Extremities: No edema, Normal pulses Skin: No breakdown Neuro: Normal speech, Sensation intact, Other (tremors ) Psych/Mental Status: Mental status NL, Mood NL MUSCULOSKELETAL: Osteoarthritic changes both hands VITALS Vital Signs Vital Signs Date Time Temp Pulse Resp B/P (MAP) Pulse Ox O2 Delivery O2 Flow Rate FiO2 09/17/20 05:51 97.5 97 20 123/80 (94) 96 Nasal Cannula 2.0 LABS LABS Laboratory Tests Test 09/15/20 13:39 09/16/20 10:15 09/16/20 13:04 09/16/20 13:09 Potassium Level 3.5 mmol/L (3.5-5.1) 3.2 mmol/L (3.5-5.1) Sodium Level 139 mmol/L (136-145) Chloride Level 104 mmol/L (98-107) Carbon Dioxide Level 23 mmol/L (21-32) Anion Gap 12 (6-14) Blood Urea Nitrogen 16 mg/dL (8-26) Creatinine 1.3 mg/dL (0.7-1.3) Estimated GFR (Cockcroft-Gault) 59.2 BUN/Creatinine Ratio 12 (6-20) Glucose Level 101 mg/dL (70-99) Calcium Level 7.1 mg/dL (8.5-10.1) Total Bilirubin 0.9 mg/dL (0.2-1.0) Aspartate Amino Transf (AST/SGOT) 41 U/L (15-37) Alanine Aminotransferase (ALT/SGPT) 18 U/L (16-63) Alkaline Phosphatase 74 U/L (46-116) Total Protein 5.9 g/dL (6.4-8.2) Albumin 2.2 g/dL (3.4-5.0) Albumin/Globulin Ratio 0.6 (1.0-1.7) Lipase 1717 U/L (73-393) Blood Gas pH 7.32 (7.35-7.46) Blood Gas PCO2 46 mmHg (35-46) Blood Gas PO2 56 mmHg (80-100) Blood Gas HCO3 24 mmol/L (21-28) Arterial Bld O2 Saturation (Calc) 85 % (92-99) FiO2 28 % Troponin I Quantitative 0.022 ng/mL (0-0.055) YV-Ozz-X-Type Natriuretic Peptide 328 pg/mL (0-124) Test 09/16/20 13:23 09/17/20 06:12 White Blood Count 8.9 x10^3/uL (4.0-11.0) 8.1 x10^3/uL (4.0-11.0) Red Blood Count 3.78 x10^6/uL (4.30-5.70) 3.54 x10^6/uL (4.30-5.70) Hemoglobin 13.1 g/dL (13.0-17.5) 12.4 g/dL (13.0-17.5) Hematocrit 38.7 % (39.0-53.0) 36.8 % (39.0-53.0) Mean Corpuscular Volume 103 fL (79-100) 104 fL (79-100) Mean Corpuscular Hemoglobin 35 pg (25-35) 35 pg (25-35) Mean Corpuscular Hemoglobin Concent 34 g/dL (31-37) 34 g/dL (31-37) Red Cell Distribution Width 15.4 % (11.5-14.5) 15.7 % (11.5-14.5) Platelet Count 59 x10^3/uL (140-400) 75 x10^3/uL (140-400) Neutrophils (%) (Auto) 88 % (31-73) 92 % (31-73) Lymphocytes (%) (Auto) 4 % (24-48) 3 % (24-48) Monocytes (%) (Auto) 8 % (0-9) 5 % (0-9) Eosinophils (%) (Auto) 0 % (0-3) 0 % (0-3) Basophils (%) (Auto) 0 % (0-3) 0 % (0-3) Neutrophils # (Auto) 7.9 x10^3uL (1.8-7.7) 7.5 x10^3uL (1.8-7.7) Lymphocytes # (Auto) 0.3 x10^3/uL (1.0-4.8) 0.2 x10^3/uL (1.0-4.8) Monocytes # (Auto) 0.7 x10^3/uL (0.0-1.1) 0.4 x10^3/uL (0.0-1.1) Eosinophils # (Auto) 0.0 x10^3/uL (0.0-0.7) 0.0 x10^3/uL (0.0-0.7) Basophils # (Auto) 0.0 x10^3/uL (0.0-0.2) 0.0 x10^3/uL (0.0-0.2) D-Dimer (Kaylie) > 19.00 mg/L (0.00-0.50) Sodium Level 138 mmol/L (136-145) Potassium Level 3.0 mmol/L (3.5-5.1) Chloride Level 102 mmol/L (98-107) Carbon Dioxide Level 25 mmol/L (21-32) Anion Gap 11 (6-14) Blood Urea Nitrogen 14 mg/dL (8-26) Creatinine 1.2 mg/dL (0.7-1.3) Estimated GFR (Cockcroft-Gault) 64.9 BUN/Creatinine Ratio 12 (6-20) Glucose Level 105 mg/dL (70-99) Calcium Level 8.0 mg/dL (8.5-10.1) Total Bilirubin 0.9 mg/dL (0.2-1.0) Aspartate Amino Transf (AST/SGOT) 36 U/L (15-37) Alanine Aminotransferase (ALT/SGPT) 20 U/L (16-63) Alkaline Phosphatase 79 U/L (46-116) Total Protein 6.6 g/dL (6.4-8.2) Albumin 2.4 g/dL (3.4-5.0) Albumin/Globulin Ratio 0.6 (1.0-1.7) Lipase 472 U/L (73-393) ASSESSMENT/PLAN Assessment/Plan 1. Abdominal pain, vomiting; improving. tolerating solid foods 2. Pancreatitis; lipase improving 3. ETOH withdrawal with DT. Discussed ETOH cessation. Verbalized desire. 4. Dyspnea with AE COPD and mild acute probable diastolic CHF; s/p IV diuresis; appears compensated 5. Sinus tachycardia; physiologic secondary to #3. 6. Hypokalemia; being replaced 6. Elevated d-dimer WILL JONES APRN Sep 17, 2020 08:15
[2020-09-17] MEDS: POTASSIUM CHLORIDE 20 MEQ TABLET.ER. PO SCH (08:51)
[2020-09-17] MEDS: MVI, ADULT NO.4 WITH VIT K 10 ML, THIAMINE INJ 100 MG, FOLIC ACID INJ 1 MG in IV NORMAL... IV SCH (08:52)
--- NOTE | 2020-09-17 09:11 | NUR ---
NSG NOTE; AM CONDITION PT AWAKE AND ALERT THIS AM. ORIENTED X4. CALM AND COOPERATIVE. EXPRESSES REGRET OVER BEHAVIOR DURING ETOH WITHDRAWAL OVER THE LAST SEVERAL DAYS. STATED HE PLANS TO REJOIN AA [place] WITH [place] . STATES HAS BEEN SOBER FOR ONE YEAR BEFORE. I REMINDED HE'S GONE THROUGH THE HARD PHYSICAL WITHDRAWAL HERE AT THE HOSPITAL. PHYSICALLY SHAKY BUT STATES HE IS ALWAYS SHAKY. WAS ABLE TO AMB WITH ONE PERSON HANDS ON ASSIST ATE A FEW BITES OF BREAKFAST AND DRINKING WATER WITHOUT DIFFICULTY. TOOK A SHOWER WITH MINIMAL ASSIST.
[2020-09-17 10:51] VITALS: BP 130/78
--- NOTE | 2020-09-17 12:07 | NUR ---
NSG NOTE; DISCHARGE VERBAL AND WRITTEN DISCHARGE INSTRUCTIONS GIVEN TO PT WITH VERBAL UNDERSTANDING WRITTEN RX X2 GIVEN TO PT DISCHARGED TO HOME AT 1200 VIA W/C ACCOMP BY WHO PICKED HIM UP
--- NOTE | 2020-09-17 13:43 | DS ---
DATE OF DISCHARGE: 09/17/2020 ATTENDING PHYSICIANS: Dr. Torres, Dr. Bean. FINAL DISCHARGE DIAGNOSES: 1. Acute alcoholic pancreatitis. 2. Chronic alcoholism. 3. Volume overload, compensated. 4. Chronic obstructive pulmonary disease. 5. Probable diastolic heart failure. 6. Polysubstance abuse. HISTORY AND PHYSICAL: This 49-year-old gentleman, chronic alcoholic as well as other substance abuse, who was admitted with acute alcoholic pancreatitis. His symptoms were abdominal pain and nausea. Please refer to the admit note. PHYSICAL EXAMINATION: Please refer to the note. PERTINENT LABORATORY STUDIES: Prior to discharge, hemoglobin stable at 12.4 g/dL, white count 8100. Electrolytes: Sodium ____; potassium 3.0 mEq, this will be replaced as an outpatient and followed up. Nonfasting blood sugar 105. Chest x-ray prior to discharge showed some cephalization, no acute infiltrates identified. COURSE IN THE HOSPITAL: The patient was admitted. He was given fluids, pain relief and nausea control. He did well. Diet was advanced. He had no further symptoms. Cardiology consultation was obtained. Their recommendations are greatly appreciated. On the fifth hospital day, he was up and about. He was sober. He was ambulating. He was ambulating without any assistance and appeared stable. Strong encouragement to avoid further alcohol use. Whether or not he will quit drinking remains to be seen. Potassium level was 3.0, but he is asymptomatic. He will be followed outpatient. I did write for supplemental potassium, K-Dur 20 mEq daily for 10 more days, Ativan 1 mg b.i.d. and followup with his primary care physician. The patient was then discharged from our hospital in stable condition with explicit instructions and followup care. MELISSA BEAN MD DR: LISA/mikki JOB#: [id number] / [id number]
== END 2020-09-17 12:00 | disposition home or self-care (01) | DRG 439 ==
LOC: ER 18:43 → 1 SOUTH 21:19
PROVIDERS: ADMIT Internal Medicine; ATTEND Internal Medicine
DX: K85.20 Alcohol induced acute pancreatitis without necrosis or infection (principal); F10.239 Alcohol dependence with withdrawal, unspecified; I50.30 Unspecified diastolic (congestive) heart failure; K76.0 Fatty (change of) liver, not elsewhere classified; N28.1 Cyst of kidney, acquired; M51.37 Other intervertebral disc degeneration, lumbosacral region; K52.9 Noninfective gastroenteritis and colitis, unspecified; E87.6 Hypokalemia; R09.02 Hypoxemia; J44.9 Chronic obstructive pulmonary disease, unspecified; F19.10 Other psychoactive substance abuse, uncomplicated; Z79.899 Other long term (current) drug therapy; Z82.49 Family history of ischemic heart disease and other diseases of the circulatory system
CPT/HCPCS: 36415; 71045; 74177; 80053; 82803; 83690; 83735; 83880; 84132; 84484; 85025; 85027; 85379; 93005; 94640; 96361; 96365; 96375; 99285; C9113; J1200; J1630; J1940; J2020; J2060; J2270; J2405; J2543; J2920; J2930; J3475; J3480; J3490; J7042; Q9967; J7030

== ENCOUNTER 2020-09-28 14:15 | Inpatient (IN) | payer SELFPAY ==
[~2020-09-28] VITALS: Ht 165.1 cm; Wt 62.7 kg
[2020-09-28] MEDS ORDERED: IV NORMAL SALINE 1,000ML 1,000 ML IV ONE (15:30)
--- NOTE | 2020-09-28 15:48 | PHYS DOC ---
Past History Past Medical History: Alcoholism (TRISTA FINLEY DO) Past Surgical History: Other Additional Past Surgical Histo: JAW SURGERY (TRISTA FINLEY DO) Alcohol Use: Heavy (TRISTA FINLEY DO) General Adult EDM: Chief Complaint: MULTIPLE COMPLAINTS HPI: HPI: 49-year-old male presents with jaundice. The patient was recently seen in this facility for pancreatitis. He was discharged home. He presents today because he has had abdominal distention and he noticed that his eyes and skin look yellow. He feels like he looks yellow down to the waist. He is having moderate discomfort with the abdominal distention. He does not have any liver history. Denies history of hepatitis or HIV. He denies fever or chills. (TRISTA FNILEY DO) Review of Systems: Review of Systems: Constitutional: Denies fever or chills Eyes: Denies change in visual acuity. Scleral icterus HENT: Denies nasal congestion or sore throat Respiratory: Denies cough or shortness of breath Cardiovascular: Denies chest pain or edema GI: abdominal pain. denies nausea, vomiting, bloody stools or diarrhea : Denies dysuria Musculoskeletal: Denies back pain or joint pain Integument: Jaundice Neurologic: Denies headache, focal weakness or sensory changes Endocrine: Denies polyuria or polydipsia Lymphatic: Denies swollen glands Psychiatric: Denies depression or anxiety (TRISTA FINLEY DO) Current Medications: Current Meds: Current Medications Medications (Trade) Dose Ordered Sig/Mia Start Time Stop Time Status Last Admin Dose Admin Sodium Chloride 1,000 ml @ 1,000 mls/hr 1X ONCE 09/28/20 15:30 09/28/20 16:29 (TRISTA FINLEY DO) Allergies: Allergies: Allergies Coded Allergies Type Severity Reaction Last Updated Verified No Known Drug Allergies 09/13/20 No (TRISTA FINLEY DO) Physical Exam: PE: Constitutional: Well developed, well nourished, no acute distress, non-toxic appearance. [] HENT: Normocephalic, atraumatic, bilateral external ears normal, oropharynx moist, no oral exudates, nose normal. [] Eyes: PERRLA, EOMI, scleral icterus, no discharge. [] Neck: Normal range of motion, no tenderness, supple, no stridor. [] Cardiovascular: Heart rate regular rhythm, no murmur [] Lungs & Thorax: Bilateral breath sounds clear to auscultation [] Abdomen: Bowel sounds normal, soft, mild tenderness, distention. [] Skin: Jaundice down to the waist [] Back: No tenderness, no CVA tenderness. [] Extremities: No tenderness, no cyanosis, no clubbing, ROM intact, no edema. [] Neurologic: Alert and oriented X 3, normal motor function, normal sensory function, no focal deficits noted. [] Psychologic: Affect normal, judgement normal, mood normal. [] (TRISTA FINLEY DO) EKG: EKG: Sinus tachycardia, rate 113, normal axis, no ST elevations or depressions. [] (TRISTA FINLEY DO) Radiology/Procedures: Radiology/Procedures: [] (TRISTA FINLEY DO) Radiology/Procedures: [address] [address] IMAGING REPORT Signed PATIENT: JOSE LONG ACCOUNT: [id number] : 1970 LOCATION: ER AGE: 49 SEX: M EXAM STATUS: REG ER ORD. PHYSICIAN: SHIRA DAVID MD REASON: Radiology recommendation for eval cystic lesion PROCEDURE: CT ABD PELV W/ORAL&IV CONTRAST CT abdomen pelvis with contrast dated 10/08/2020. Comparison made to 01/14/2020. CLINICAL INDICATION: History pancreatitis. Abdominal pain and jaundice. Follow-up exam. TECHNIQUE: Contiguous axial imaging the abdomen pelvis performed after the administration of 75 cc Omnipaque 300. One or more of the following individualized dose reduction techniques were utilized for this examination: 1. Automated exposure control 2. Adjustment of the mA and/or kV according to patient size 3. Use of iterative reconstruction technique. FINDINGS: Limited images of lung bases show small bilateral pleural effusions. There is patchy and linear opacity in the lower lobes, likely atelectasis. Calcified granuloma in the left lower lobe. Heart size is upper limits of normal. No pericardial effusion. The pancreas is heterogeneous and enlarged and there is inflammatory changes and fluid around the gland. A large pocket of fluid extends along the greater curvature of the stomach and displaces the stomach toward the right. This is new from prior study and measures approximately 12.8 x 7.4 x 7.5 cm. Additional smaller pockets of fluid distended inferiorly in the mesentery. There is a small cystic focus at the pancreatic tail that measures 2.1 cm. Small amount of ascites extends inferiorly into the pelvis. No pneumoperitoneum. Celiac artery, SMA and portal vein are patent. The splenic vein is poorly visualized and may be narrowed or partially occluded. There are borderline enlarged peripancreatic lymph nodes. Liver is homogeneous. No apparent hepatic mass. The biliary tree is normal in caliber. The gallbladder is distended and there is diffuse gallbladder wall thickening. No apparent calcific stone. Adrenal glands and kidneys are unremarkable. No hydronephrosis. Well-circumscribed low-density focus at the midpole left kidney, likely cyst. GI tract is otherwise normal in caliber and contour. Mild wall thickening of the ascending colon, transverse colon and descending colon and sigmoid. Small bowel unremarkable. Abdominal aorta normal in caliber. Images of pelvis show nondistended urinary bladder. Mild diffuse bladder wall thickening. Small left inguinal hernia containing only fat. No pelvic adenopathy. Bone windows show no acute findings. Multilevel spondylosis. There is grade 1 spondylolisthesis and bilateral spondylolysis at L5-S1. IMPRESSION: 1. Findings consistent with acute pancreatitis. There is been interval development of a large pseudocyst along the greater curvature stomach. There is also a small to moderate amount ascites. 2. The splenic vein is poorly visualized and may be compressed or occluded by inflammatory process of the pancreas. Significant gastric varices at this time. 3. Diffuse wall thickening of the colon, nonspecific. Could be reactive. Infectious or inflammatory colitis not excluded. 4. Gallbladder wall thickening and gallbladder distention, also nonspecific. There is no apparent gallstones. 5. Small bilateral pleural effusions Electronically signed by: Jalen Shoemaker MD (09/28/2020 9:20 PM) [facility] [place] DICTATED AND SIGNED BY: JALEN SHOEMAKER MD DATE: 09/28/202119 CC: SHIRA DAVID MD; PCP,NO ~ [address] [address] IMAGING REPORT Signed PATIENT: JOSE LONG ACCOUNT: [id number] : 1970 LOCATION: ER AGE: 49 SEX: M EXAM STATUS: REG ER ORD. PHYSICIAN: TRISTA FINLEY DO REASON: RUQ pain, jaundice PROCEDURE: ABDOMEN LTD ABDOMEN LTD History: Reason: RUQ pain, jaundice / Spl. Instructions: / History: Comparison: CT September 13, 2020. Technique: Transabdominal ultrasound images are obtained of the right upper quadrant. Findings: Visualized pancreas is normal seen due to overlying bowel gas. Complex cystic lesion adjacent to the pancreas and left hepatic lobe measures approximately 11.8 x 6.3 cm. Liver is normal in echogenicity. Right hepatic lobe measures 16.0 cm. Portal flow is hepatopedal. Mild gallbladder wall thickening measures 5 mm. No cholelithiasis. Small pericholecystic fluid. Negative sonographic Mays sign. Common bile duct measures 4.5 mm in diameter. The right kidney measures 11.6 x 5.0 x 4.5 cm. No hydronephrosis. Normal caliber IVC. Aorta not well seen due to overlying bowel gas. Small upper abdominal ascites. Right pleural effusion. IMPRESSION: 1. Complex cystic lesion adjacent to the pancreas and left hepatic lobe, may represent pseudocyst given recent findings of pancreatitis. Recommend CT with contrast to further evaluate. 2. Mild gallbladder wall thickening and small pericholecystic fluid, may relate to reactive changes. If concern for gallbladder pathology, HIDA scan can better evaluate gallbladder function. 3. Small ascites. 4. Right pleural effusion. Electronically signed by: Ayden Sarabia DO (09/28/2020 5:30 PM) [facility] DICTATED AND SIGNED BY: AYDEN SARABIA DO DATE: 09/28/20 3600 CC: TRISTA FINLEY DO; PCP,NO ~ (SHIRA DAVID MD) Heart Score: Risk Factors: Risk Factors: DM, Current or recent (<one month) smoker, HTN, HLP, family history of CAD, obesity. Risk Scores: Score 0 - 3: 2.5% MACE over next 6 weeks - Discharge Home Score 4 - 6: 20.3% MACE over next 6 weeks - Admit for Clinical Observation Score 7 - 10: 72.7% MACE over next 6 weeks - Early Invasive Strategies (TRISTA FINLEY DO) HEART Score for Chest Pain: HEART Score for Chest Pain Response (Comments) Value History Slighlty/Non-Suspicious 0 ECG Nonspecific Repolarizatio 1 Age >45 - < 65 1 Risk Factors 1 or 2 Risk Factors 1 Total 3 Course & Med Decision Making: Course & Med Decision Making Pertinent Labs and Imaging studies reviewed. (See chart for details) As expected, the patient has abnormal liver labs. He has an elevated bilirubin as well as other diffuse liver findings. See official labs for more details. The patient's right upper quadrant ultrasound is pending. I am signing the patient out to Dr. David at 1730. He will determine the patient's final disposition. [] (TRISAT FINLEY DO) Course & Med Decision Making See Dr. Finley chart for details. Discussed presentation, testing and tx. plan with Dr. Torres. No beds currently at [facility]- Plan admit [facility] for Acute Pancreatitis Impression; 1. Abdomen Pain- Pancreatitis 2. Elevated LFT's AST, ALT, Alk Phos, 3. Anemia 11.4 4. Elevated Coags. PT, INR, and PTT 5. Hx. Alcohol Abuse 6. Malnutrition (SHIRA DAVID MD) Dragon Disclaimer: Dragon Disclaimer: This electronic medical record was generated, in whole or in part, using a voice recognition dictation system. (TRISTA FINLEY DO) Departure Departure: Impression: Primary Impression: Elevated liver enzymes Additional Impression: Jaundice Referrals: PCP,NO (PCP) Iesha Disclaimer This chart was dictated in whole or in part using Voice Recognition software in a busy, high-work load, and often noisy Emergency Department environment. It may contain unintended and wholly unrecognized errors or omissions. (SHIRA DAVID MD) TRISTA FINLEY DO Sep 28, 2020 15:48 SHIRA DAVID MD Sep 28, 2020 19:05
[2020-09-28 16:20] LABS: BASO % 0 % (0-3); CALCIUM 8.7 mg/dL (8.5-10.1); CREATININE 0.9 mg/dL (0.7-1.3); EOS % 0 % (0-3); GFR 90.4; HEMATOCRIT 33.8 % (39.0-53.0); HEMOGLOBIN 11.4 g/dL (13.0-17.5); LYMPH % 9 % (24-48); MEAN CORPUSCULAR HEMOGLOBIN 35 pg (25-35); MEAN CORPUSCULAR HGB CONC 34 g/dL (31-37); MEAN CORPUSCULAR VOLUME 104 fL (79-100); MONO # 0.5 x10^3/uL (0.0-1.1); MONO % 4 % (0-9); NEUT # 8.8 x10^3uL (1.8-7.7); NEUT % 86 % (31-73); PLATELET COUNT 146 x10^3/uL (140-400); POTASSIUM 4.6 mmol/L (3.5-5.1); RED BLOOD COUNT 3.25 x10^6/uL (4.30-5.70); WHITE BLOOD COUNT 10.2 x10^3/uL (4.0-11.0)
[2020-09-28 16:35] LABS: ALBUMIN 1.9 g/dL (3.4-5.0); ALBUMIN/GLOBULIN RATIO 0.5 (1.0-1.7); TOTAL BILIRUBIN 8.3 mg/dL (0.2-1.0); TOTAL PROTEIN 5.9 g/dL (6.4-8.2)
--- NOTE | 2020-09-28 17:32 | RAD ---
ABDOMEN LTD History: Reason: RUQ pain, jaundice / Spl. Instructions: / History: Comparison: CT September 13, 2020. Technique: Transabdominal ultrasound images are obtained of the right upper quadrant. Findings: Visualized pancreas is normal seen due to overlying bowel gas. Complex cystic lesion adjacent to the pancreas and left hepatic lobe measures approximately 11.8 x 6.3 cm. Liver is normal in echogenicity. Right hepatic lobe measures 16.0 cm. Portal flow is hepatopedal. Mild gallbladder wall thickening measures 5 mm. No cholelithiasis. Small pericholecystic fluid. Negative sonographic Mays sign. Common bile duct measures 4.5 mm in diameter. The right kidney measures 11.6 x 5.0 x 4.5 cm. No hydronephrosis. Normal caliber IVC. Aorta not well seen due to overlying bowel gas. Small upper abdominal ascites. Right pleural effusion. IMPRESSION: 1. Complex cystic lesion adjacent to the pancreas and left hepatic lobe, may represent pseudocyst given recent findings of pancreatitis. Recommend CT with contrast to further evaluate. 2. Mild gallbladder wall thickening and small pericholecystic fluid, may relate to reactive changes. If concern for gallbladder pathology, HIDA scan can better evaluate gallbladder function. 3. Small ascites. 4. Right pleural effusion. Electronically signed by: Ayden Rios DO (09/28/2020 5:30 PM) [facility]
[2020-09-28] MEDS ORDERED: IOHEXOL 300 MG/ML 75 ML VIAL. IV ONE (19:15)
[2020-09-28] MEDS ORDERED: IOHEXOL 240 MG/ML 50ML VIAL. PO ONE (19:15)
[2020-09-28] MEDS ORDERED: CONTRAST GIVEN. MC PRN (19:30)
[2020-09-28 20:06] LABS: BILIRUBIN,URINE LARGE (NEG); CLARITY,URINE CLEAR; COLOR,URINE AMBER; GLUCOSE,URINE NEG (NEG)
[2020-09-28 20:07] LABS: BACTERIA,URINE 0 /HPF (0-FEW); NITRITE,URINE NEG (NEG); RBC,URINE RARE /HPF (0-2); WBC,URINE RARE /HPF (0-4)
--- NOTE | 2020-09-28 20:51 | EKG ---
[facility] ED [facility] [address] [place] [id number] Test Date: 2020-09-28 Test Time: 19:15:59 Pat Name: JOSE LONG Department: Room: Gender: M Data Governance Analyst: : 1970 Requested By: SHIRA HUGHES Order Number: [id number] Reading MD: Measurements Intervals [place] Rate: 94 P: 49 WI: 128 QRS: 55 QRSD: 80 T: 53 QT: 334 QTc: 423 Interpretive Statements SINUS RHYTHM LEFT ATRIAL ABNORMALITY ABNORMAL ECG RI6.02 No previous ECG available for comparison
--- NOTE | 2020-09-28 21:23 | RAD ---
CT abdomen pelvis with contrast dated 10/08/2020. Comparison made to 01/14/2020. CLINICAL INDICATION: History pancreatitis. Abdominal pain and jaundice. Follow-up exam. TECHNIQUE: Contiguous axial imaging the abdomen pelvis performed after the administration of 75 cc Omnipaque 300. One or more of the following individualized dose reduction techniques were utilized for this examination: 1. Automated exposure control 2. Adjustment of the mA and/or kV according to patient size 3. Use of iterative reconstruction technique. FINDINGS: Limited images of lung bases show small bilateral pleural effusions. There is patchy and linear opacity in the lower lobes, likely atelectasis. Calcified granuloma in the left lower lobe. Heart size is upper limits of normal. No pericardial effusion. The pancreas is heterogeneous and enlarged and there is inflammatory changes and fluid around the gland. A large pocket of fluid extends along the greater curvature of the stomach and displaces the stomach toward the right. This is new from prior study and measures approximately 12.8 x 7.4 x 7.5 cm. Additional smaller pockets of fluid distended inferiorly in the mesentery. There is a small cystic focus at the pancreatic tail that measures 2.1 cm. Small amount of ascites extends inferiorly into the pelvis. No pneumoperitoneum. Celiac artery, SMA and portal vein are patent. The splenic vein is poorly visualized and may be narrowed or partially occluded. There are borderline enlarged peripancreatic lymph nodes. Liver is homogeneous. No apparent hepatic mass. The biliary tree is normal in caliber. The gallbladder is distended and there is diffuse gallbladder wall thickening. No apparent calcific stone. Adrenal glands and kidneys are unremarkable. No hydronephrosis. Well-circumscribed low-density focus at the midpole left kidney, likely cyst. GI tract is otherwise normal in caliber and contour. Mild wall thickening of the ascending colon, transverse colon and descending colon and sigmoid. Small bowel unremarkable. Abdominal aorta normal in caliber. Images of pelvis show nondistended urinary bladder. Mild diffuse bladder wall thickening. Small left inguinal hernia containing only fat. No pelvic adenopathy. Bone windows show no acute findings. Multilevel spondylosis. There is grade 1 spondylolisthesis and bilateral spondylolysis at L5-S1. IMPRESSION: 1. Findings consistent with acute pancreatitis. There is been interval development of a large pseudocyst along the greater curvature stomach. There is also a small to moderate amount ascites. 2. The splenic vein is poorly visualized and may be compressed or occluded by inflammatory process of the pancreas. Significant gastric varices at this time. 3. Diffuse wall thickening of the colon, nonspecific. Could be reactive. Infectious or inflammatory colitis not excluded. 4. Gallbladder wall thickening and gallbladder distention, also nonspecific. There is no apparent gallstones. 5. Small bilateral pleural effusions Electronically signed by: Jalen Shoemaker MD (09/28/2020 9:20 PM) [facility]
[2020-09-28] MEDS ORDERED: ONDANSETRON PF 4 MG/2 ML VIAL. IVP PRN (23:15)
[2020-09-28] MEDS ORDERED: MORPHINE SULFATE 10 MG/ML SYRINGE. SQ PRN (23:15)
[2020-09-29] MEDS ORDERED: cefTRIAXone SODIUM 1 GM VIAL ONE (00:37)
[2020-09-29] MEDS ORDERED: IV NORMAL SALINE 50ML 50 ML ONE (00:37)
[2020-09-29 07:12] LABS: CREATININE 0.9 mg/dL (0.7-1.3); POTASSIUM 4.4 mmol/L (3.5-5.1)
[2020-09-29 07:14] LABS: GFR 90.4
[2020-09-29 07:24] LABS: WHITE BLOOD COUNT 8.6 x10^3/uL (4.0-11.0)
[2020-09-29 07:25] LABS: HEMATOCRIT 27.8 % (39.0-53.0); HEMOGLOBIN 9.1 g/dL (13.0-17.5); MEAN CORPUSCULAR HEMOGLOBIN 34 pg (25-35); MEAN CORPUSCULAR HGB CONC 33 g/dL (31-37); MEAN CORPUSCULAR VOLUME 103 fL (79-100); PLATELET COUNT 134 x10^3/uL (140-400); RED CELL DISTRIBUTION WIDTH 17.3 % (11.5-14.5)
[2020-09-29 09:18] LABS: % LYMPHS 5 % (24-48); % MONOS 6 % (0-10); % SEGS 89 % (35-66); PLT ESTIMATE DECREASED (ADEQUATE); TOXIC GRANULATION PRESENT; TOXIC VACUOLATION PRESENT
[2020-09-29 09:19] LABS: ANISOCYTOSIS MOD; POLYCHROMASIA PRESENT
[2020-09-29] MEDS: FAMOTIDINE 20 MG/2 ML VIAL IVP SCH ×2 (11:32→21:55)
[2020-09-29] MEDS ORDERED: POTASSIUM CL 20MEQ D5-0.45NACL 1,000 ML IV ONE (17:39)
[2020-09-29] MEDS ORDERED: ONDANSETRON PF 4 MG/2 ML VIAL. IVP PRN ×2 (17:45→19:45)
[2020-09-29] MEDS ORDERED: POTASSIUM CL 20MEQ D5-0.45NACL 1,000 ML IV PRN (17:45)
[2020-09-29 18:08] LABS: ALBUMIN 1.6 g/dL (3.4-5.0); DIRECT BILIRUBIN 6.6 mg/dL (0.0-0.2); TOTAL BILIRUBIN 7.4 mg/dL (0.2-1.0); TOTAL PROTEIN 5.1 g/dL (6.4-8.2)
[2020-09-29 19:16] VITALS: BP 106/77
[2020-09-29] MEDS: IV NORMAL SALINE 1,000ML 1,000 ML IV SCH (19:31)
[2020-09-29] MEDS ORDERED: ACETAMINOPHEN 325 MG TABLET PO PRN (19:45)
[2020-09-29] MEDS: NICOTINE 21MG PATCH. TD SCH (21:55)
[2020-09-29 23:27] VITALS: BP 100/68
[2020-09-30] MEDS: IV NORMAL SALINE 1,000ML 1,000 ML IV SCH ×2 (05:47→13:57)
[2020-09-30 06:19] LABS: HEMATOCRIT 29.5 % (39.0-53.0); HEMOGLOBIN 9.9 g/dL (13.0-17.5); RED BLOOD COUNT 2.8 x10^6/uL (4.30-5.70); WHITE BLOOD COUNT 10.7 x10^3/uL (4.0-11.0)
[2020-09-30 06:24] LABS: CALCIUM 8.1 mg/dL (8.5-10.1); CREATININE 0.9 mg/dL (0.7-1.3); GFR 90.4; POTASSIUM 3.9 mmol/L (3.5-5.1)
[2020-09-30 06:37] VITALS: BP 117/76
[2020-09-30 06:38] LABS: ALBUMIN 1.7 g/dL (3.4-5.0); ALBUMIN/GLOBULIN RATIO 0.4 (1.0-1.7); TOTAL BILIRUBIN 8.8 mg/dL (0.2-1.0); TOTAL PROTEIN 5.5 g/dL (6.4-8.2)
[2020-09-30] MEDS ORDERED: MORPHINE SULFATE 2 MG/ML DISP.SYRIN. IV ONE (08:30)
[2020-09-30] MEDS: NICOTINE 21MG PATCH. TD SCH (09:44)
[2020-09-30] MEDS: FAMOTIDINE 20 MG/2 ML VIAL IVP SCH (09:44)
[2020-09-30 10:41] VITALS: BP 111/80
--- NOTE | 2020-09-30 14:58 | RAD ---
EXAM: HEPATOBILIARY SCINTIGRAPHY HISTORY: Abnormal liver enzymes TECHNIQUE: 5.5 mCi technetium-99m Choletec were administered intravenously and scintigraphic images of the abdomen obtained. After an hour of imaging, 2 mg of morphine was infused for better visualization of the gallbladder. FINDINGS: There is prompt hepatic clearance of tracer from the blood pool. There is homogeneous distribution throughout the liver. There is persistent activity in the liver however throughout the examination despite relatively prompt excretion of radiopharmaceutical into the bowel by 20 minutes. No definite gallbladder activity is identified even with administration of morphine. IMPRESSION: 1. Impaired hepatic function with persistent hepatic activity throughout the examination. 2. Nonfilling of the gallbladder even with the use of morphine implies cystic duct obstruction and is consistent with acute cholecystitis. Electronically signed by: Ciaran Ram MD (09/30/2020 2:55 PM) [id number]
[2020-09-30 15:02] VITALS: BP 110/73
--- NOTE | 2020-09-30 16:10 | HP ---
ADMIT DATE: 09/29/2020 HISTORY OF PRESENT ILLNESS: The patient is a 49-year-old male patient who presented to the Emergency Room with multiple complaints, he came with jaundice and he also was recently admitted for pancreatitis. He was discharged home and presented because he had increasing abdominal distention, noticed that his eyes and skin looked yellow. He feels he looks yellow down to the waist. He is having moderate discomfort with abdominal distention. He does not have any liver history. Denied any history of hepatitis or HIV. He denied any fever, chills, or rigors. He was extensively investigated with lab work and imaging studies. His initial lab work showed a white cell count of 10,000, hemoglobin 11, hematocrit 33, MCV 104 and platelet count of 146,000. His prothrombin time was 20.6, INR of 2, aPTT was 38 and his serum lipase was actually within normal range; however, his liver enzymes and total bilirubin was elevated. He was treated with IV fluid and IV antibiotic. His abdominal ultrasound showed the patient has complex cystic lesion adjacent to the pancreas and left hepatic lobe, may represent pseudocyst given recent finding of pancreatitis. Recommend CT with contrast to further evaluate, has mild gallbladder wall thickening and small pericholecystic fluid, may relate to reactive changes concerning for gallbladder pathology. HIDA scan to evaluate gallbladder function, has small ascites and right pleural effusion. He did have a CT scan of the abdomen and pelvis, which again showed that the findings are consistent with acute pancreatitis. The splenic vein is poorly visualized that may be compressed or occluded by inflammatory process of the pancreas, significant gastric varices at this time. He has diffuse wall thickening of the colon, nonspecific, could be reactive, infectious or inflammatory colitis not excluded, gallbladder wall thickening, gallbladder distention also nonspecific. There are no apparent gallstones. He has small bilateral pleural effusions. The patient was admitted, kept n.p.o., started on IV fluid, IV pain medication and antibiotic. PAST MEDICAL HISTORY: Significant for chronic alcoholism. PAST SURGICAL HISTORY: Unremarkable. FAMILY HISTORY: Noncontributory. SOCIAL HISTORY: He is . Apparently, he is a heavy drinker and his drinks with him. ALLERGIES: He has no known drug allergies. MEDICATIONS: He is on no medication at home. REVIEW OF SYSTEMS: As per history of present illness. PHYSICAL EXAMINATION: GENERAL: On arrival to the Emergency Room, the patient looked jaundiced, but not cyanosed. No lymphadenopathy, no thyromegaly. No jugular venous distention. No limb edema. VITAL SIGNS: His heart rate was 101, blood pressure was 115/84, temperature was 99.2, respiratory rate was 16, and oxygen saturation was 97% on room air. HEAD, EYES, EARS, NOSE AND THROAT: Showed normocephalic, atraumatic. NECK: Supple. HEART: Showed normal first and second heart sounds. No gallop, rub or murmur. CHEST: Clear to auscultation. No crepitation or rhonchi. ABDOMEN: Distended, soft with tenderness mostly in the right upper quadrant. No guarding or rigidity. No organomegaly. All hernial orifice intact. Bowel sounds normal. NEUROLOGIC: He is awake, alert, responding appropriately. EXTREMITIES: He moves his extremities without difficulty. He definitely has no flapping tremor. LABORATORY DATA: His white cell count was 8600, hemoglobin 9.1, hematocrit 27.8, MCV 103 and platelet count of 134,000. His chemistry on arrival showed serum sodium 133, potassium 4.6, chloride 97, bicarbonate 26, anion gap of 10, BUN 18, creatinine 0.9, estimated GFR was 90, glucose was 82. Lactic acid was 1.2, calcium was 8.7. Total bilirubin was 8.3, direct bilirubin 7.5. AST, ALT, alkaline phosphatase are markedly elevated. Total protein was 5.9, albumin was 1.9. Lipase was 287. Ammonia was 47. His prothrombin time was 20.6, INR of 2, aPTT was 38. Urinalysis essentially unremarkable. Drug screen showed alcohol to be less than 10 and acute hepatitis serology were all nonreactive. ASSESSMENT AND PLAN: 1. Acute pancreatitis. 2. Cholestatic jaundice with possible acute cholecystitis versus cholelithiasis versus alcohol-induced hepatitis. The patient was admitted, kept n.p.o., started on IV fluid, IV antibiotic and pain medication. We will arrange for him to have a HIDA scan and we will decide on further management accordingly. JOSEPH TOMLIN MD DR: DALE/mikki JOB#: [id number] / [id number]
[2020-09-30] MEDS ORDERED: LACTOBACILLUS RHAMNOSUS GG 1 CAPSULE. PO SCH (21:00)
--- NOTE | 2020-09-30 21:14 | PN ---
DATE: 09/30/2020 SUBJECTIVE: The patient is resting, slightly propped up in bed, no apparent distress. He continued to complain of pain in his right upper quadrant; however, denied any nausea or vomiting. Denied any diarrhea. Denied any hematemesis, melena, hematochezia. PHYSICAL EXAMINATION: GENERAL: When I saw him this afternoon, he was deeply jaundiced, not cyanosed. No lymphadenopathy. No thyromegaly, jugular venous distention. No lower limb edema. VITAL SIGNS: His heart rate was 109, blood pressure was 117/76, temperature was 99.2, respiratory rate was 16, and oxygen saturation was 95%. HEENT: Showed normocephalic, atraumatic. NECK: Supple. HEART: Showed normal first and second heart sounds. No gallop, rub or murmur. CHEST: Shows central trachea, equal bilateral chest expansion, air entry, vesicular sounds. No crepitation or rhonchi. ABDOMEN: Distended with diffuse tenderness, more in the right upper quadrant epigastric area; however, there is no guarding or rigidity. No organomegaly. All hernial orifice intact. Bowel sounds normal. NEUROLOGIC: He is awake, alert, responding appropriately. All cranial nerves are intact. He moves extremities without difficulty. His intake and output are incompletely recorded. LABORATORY DATA: His lab work this morning showed his white cell count is 10,700, hemoglobin 9.9, hematocrit 29.5, MCV 105 and platelet count of 148,000. His chemistry showed a serum sodium 133, potassium 3.9, chloride 99, bicarbonate 24, anion gap of 10, BUN 14, creatinine 0.9, estimated GFR was 90 mL per minute. His glucose 101, calcium was 8.1. Total bilirubin is 8.8. AST, ALT, alkaline phosphatase are all elevated and higher than yesterday. His ammonia was 47. Total protein was 5.5, albumin was 1.7. His lipase was 144. His prothrombin time was 15.5, INR 1.5. Urinalysis essentially unremarkable. Urine drug screen showed alcohol less than 10. His hepatitis A IgM antibody, hepatitis B surface antigen, hepatitis B core IgM antibody and hepatitis C IgG antibody were all nonreactive. ASSESSMENT: 1. Obstructive jaundice, possible acute pancreatitis. 2. Gallbladder wall thickening and gallbladder distention, also nonspecific. We did a HIDA scan, the results of which is still pending. The patient has small ascites and right pleural effusion. PLAN: To await further results of the HIDA scan and if there is any suggestion that the patient has acute cholecystitis, we will transfer him to [facility]. I am also concerned that the patient might have alcoholic hepatitis and we consult the gastroenterology team. JOSEPH TOMLIN MD DR: DALE/mikki JOB#: [id number] / [id number]
== END 2020-09-30 18:43 | disposition short-term general hospital (02) | DRG 444 ==
LOC: ER 14:15 → 1 SOUTH 09-29 17:00
PROVIDERS: ADMIT Internal Medicine; ATTEND Internal Medicine
DX: K83.1 Obstruction of bile duct (principal); K85.90 Acute pancreatitis without necrosis or infection, unspecified; K82.8 Other specified diseases of gallbladder; F10.20 Alcohol dependence, uncomplicated
CPT/HCPCS: 36415; 74177; 76705; 78227; 80048; 80053; 80076; 81001; 82140; 82150; 82248; 83605; 83690; 85007; 85025; 85027; 85610; 85730; 86705; 86709; 86803; 87340; 93005; 96361; 96365; 96368; 96375; A9537; G0480; J0696; J2060; J2270; J3010; J3490; Q9966; Q9967; 99285-25; J7030

== ENCOUNTER 2021-05-07 18:50 | Emergency (ER) | payer SELFPAY ==
[~2021-05-07] VITALS: Ht 165.1 cm; Wt 46.9 kg
--- NOTE | 2021-05-07 19:39 | PHYS DOC ---
Past History Past Medical History: Alcoholism Past Surgical History: Other Additional Past Surgical Histo: JAW SURGERY Alcohol Use: Heavy Adult General Chief Complaint Chief Complaint: ABDOMINAL PAIN HPI HPI This is a pleasant 50-year-old male with a history of cirrhosis, pancreatitis, chronic alcohol abuse in recent past present to the emergency department with complaint of left upper quadrant, epigastric pain that radiates to his back. Patient reports pain sharp and shooting in nature. He graded pain 10 out of 10. His pain started 2 days ago. His abdominal pain associated with bile he has emesis for 2 days now. He had emesis x2 since yesterday. He also complains of low back pain which is chronic. Patient denies any fever, chills, skin discoloration including jaundice recently. Patient was admitted to 09/29/2020 with acute pancreatitis. At that time patient was jaundiced his head down all the to the waist. Patient had CT scan done at that time which revealed acute pancreatitis with splenic vein abnormalities as well as diffuse abdominal colonic wall as well as gallbladder wall thickening. Patient does not see any primary care provider. He has not followed up with any GI per. Patient received at hospital care at that time. Since then he has not taken any medication for his cirrhosis or other medical conditions. Patient has not taken any analgesics for his abdominal pain. His last meal was yesterday at 7 PM which was Ramen noodle. Currently he is disabled. He continues to smoke cigarettes. Last alcohol 2 months ago reportedly. Review of Systems Review of Systems ABDOMINAL PAIN Clinical Indications for Admission to Inpatient Care (andreafski/check or initial the applicable condition/criteria): Constitutional: Denies fever or chills [] Eyes: Denies change in visual acuity, redness, or eye pain [] HENT: Denies nasal congestion or sore throat [] Respiratory: Denies cough or shortness of breath [] Cardiovascular: No additional information not addressed in HPI [] GI: Denies abdominal pain, nausea, vomiting, bloody stools or diarrhea [] : Denies dysuria or hematuria [] Musculoskeletal: Denies back pain or joint pain [] Integument: Denies rash or skin lesions [] Neurologic: Denies headache, focal weakness or sensory changes [] Endocrine: Denies polyuria or polydipsia [] All other systems were reviewed and found to be within normal limits, except as documented in this note. Allergies Allergies Allergies Coded Allergies Type Severity Reaction Last Updated Verified No Known Drug Allergies 09/13/20 No Physical Exam Physical Exam Constitutional: Well developed, well nourished, no acute distress, non-toxic appearance. [] HENT: Normocephalic, atraumatic, bilateral external ears normal, oropharynx moist, no oral exudates, nose normal. [] Eyes: PERRLA, EOMI, conjunctiva normal, no discharge. [] Neck: Normal range of motion, no tenderness, supple, no stridor. [] Cardiovascular:Heart rate regular rhythm, no murmur [] Lungs & Thorax: Bilateral breath sounds clear to auscultation [] Abdomen: Bowel sounds normal, soft, no tenderness, no masses, no pulsatile masses. [] Skin: Warm, dry, no erythema, no rash. [] Back: No tenderness, no CVA tenderness. [] Extremities: No tenderness, no cyanosis, no clubbing, ROM intact, no edema. [] Neurologic: Alert and oriented X 3, normal motor function, normal sensory function, no focal deficits noted. [] Psychologic: Affect normal, judgement normal, mood normal. [] EKG EKG [] Radiology/Procedures Radiology/Procedures [] Heart Score C/O Chest Pain: N/A Risk Factors: Risk Factors: DM, Current or recent (<one month) smoker, HTN, HLP, family history of CAD, obesity. Risk Scores: Risk Factors: DM, Current or recent (<one month) smoker, HTN, HLP, family history of CAD, obesity. Course & Med Decision Making Course & Med Decision Making Patient was examined and evaluated immediately upon arrival to the ER. He presented with diffuse abdominal pain left upper as well as epigastric pain that radiates to his back. This is chronic in nature for him. Patient has stopped drinking ethanol for past 2 months. Patient was admitted to hospital first week of April with acute pancreatitis. He significantly improved. He has been trying to comply with medications as well as physicians. He states that he does not have any PCP at this time. He is in the process of seeing physician in [facility]. Patient has not seen any GI since last hospitalization. Patient pain reasonably under control without much of any analgesics in the ER. He wanted to be checked out. His blood work unremarkable except leukocytosis likely secondary to inflammatory process. His CT abdomen pelvis revealed acute on chronic pancreatitis with large loculation. Patient was feeling well. He wants to go home. He was offered to stay in the hospital. He states that he would like to go home and follow-up with primary care provider in [place] in the free clinic. He did not appear to be toxic in the ER. His pain remained reasonably under control. His blood work reviewed. He has no transaminitis at this time. Amylase lipase also within normal limits. I encouraged patient to have close follow-up with his primary care provider possibly GI as well in near future. Exam: CT of abdomen and pelvis with contrast INDICATION: Pancreatitis, epigastric pain TECHNIQUE: Sequential axial images through the abdomen and pelvis obtained following the administration of 75 mL of Isovue-370 IV contrast. Sagittal and coronal reformatted images were reconstructed from the axial data and reviewed. Exposure: One or more of the following in the visualized dose reduction techniques were utilized for this examination: 1. Automated exposure control 2. Adjustment of the MA and/or KV according to patient size 3. Use of iterative of reconstructive technique Comparisons: 09/28/2020 FINDINGS: Heart size is normal. No pericardial effusion. Visualized lung bases are clear. Liver, spleen, and adrenals are unremarkable. Multiloculated cystic lesion at the pancreatic tail and body appears more organized when compared to the prior study in September, with largest component measuring approximately 11.1 x 8.3 cm. No perinephric inflammation or hydronephrosis. No renal or ureteral calculi are identified. Bladder is decompressed not well evaluated. Prostate is not enlarged. Large and small bowel are unremarkable. No free intra-abdominal air or fluid. No obstruction. Abdominal aorta has a normal course and caliber. Abdominal vasculature is patent. No enlarged intra-abdominal lymph nodes are identified. No suspicious osseous lesions or acute fractures. IMPRESSION: Large loculated at the pancreas with mild adjacent fat stranding favored r epresent acute on chronic pancreatitis. Laboratory Tests Test 05/07/21 20:33 White Blood Count 8.1 x10^3/uL Red Blood Count 4.64 x10^6/uL Hemoglobin 15.6 g/dL Hematocrit 45.4 % Mean Corpuscular Volume 98 fL Mean Corpuscular Hemoglobin 34 pg Mean Corpuscular Hemoglobin Concent 34 g/dL Red Cell Distribution Width 14.8 % Platelet Count 293 x10^3/uL Neutrophils (%) (Auto) 74 % Lymphocytes (%) (Auto) 19 % Monocytes (%) (Auto) 6 % Eosinophils (%) (Auto) 1 % Basophils (%) (Auto) 1 % Neutrophils # (Auto) 6.0 x10^3uL Lymphocytes # (Auto) 1.6 x10^3/uL Monocytes # (Auto) 0.5 x10^3/uL Eosinophils # (Auto) 0.0 x10^3/uL Basophils # (Auto) 0.1 x10^3/uL Sodium Level 137 mmol/L Potassium Level 4.0 mmol/L Chloride Level 102 mmol/L Carbon Dioxide Level 24 mmol/L Anion Gap 11 Blood Urea Nitrogen 10 mg/dL Creatinine 0.8 mg/dL Estimated GFR (Cockcroft-Gault) 103.2 BUN/Creatinine Ratio 13 Glucose Level 102 mg/dL Lactic Acid Level 2.0 mmol/L Calcium Level 9.0 mg/dL Total Bilirubin 0.5 mg/dL Aspartate Amino Transf (AST/SGOT) 9 U/L Alanine Aminotransferase (ALT/SGPT) 13 U/L Alkaline Phosphatase 91 U/L C-Reactive Protein 3.4 mg/L Total Protein 6.7 g/dL Albumin 3.1 g/dL Albumin/Globulin Ratio 0.9 Amylase Level 168 U/L Lipase 343 U/L Current Medications Medications (Trade) Dose Ordered Sig/Mia Route PRN Reason Start Time Stop Time Status Last Admin Dose Admin Iohexol (Omnipaque 300 Mg/ml) 75 ml 1X ONCE IV 05/07/21 20:00 05/07/21 20:01 DC 05/07/21 20:19 Sodium Chloride 1,000 ml @ 1,000 mls/hr 1X ONCE IV 05/07/21 22:00 05/07/21 22:59 DC 05/07/21 21:55 Info (Do NOT chart on this entry -- for MONITORING) 1 each PRN DAILY PRN MC SEE COMMENTS 05/07/21 21:45 05/09/21 21:44 Ketorolac Tromethamine (Toradol 30mg Vial) 30 mg 1X ONCE IVP 05/07/21 23:45 05/07/21 23:46 DC 05/07/21 23:44 Dragtimothy Disclaimer Dragon Disclaimer This electronic medical record was generated, in whole or in part, using a voice recognition dictation system. Departure Departure: Referrals: PCP,NO (PCP) Scripts Hydrocodone Bit/Acetaminophen (HYDROCODONE-APAP 5-325 ) 1 Each Tablet 1 TAB PO PRN Q6HRS PRN for PAIN for 5 Days, #12 TAB 0 Refills Prov: KELSEY DUVALL MD 05/07/21 Naproxen (NAPROXEN) 500 Mg Tablet 1 TAB PO BID for pain for 10 Days, #20 TAB 0 Refills Prov: KELSEY DUVALL MD 05/07/21 Ondansetron Hcl (ZOFRAN) 4 Mg Tablet 1 TAB PO Q6HRS for nausea for 5 Days, #20 TAB Prov: KELSEY DUVALL MD 05/07/21 KELSEY DUVALL MD May 07, 2021 19:39
[2021-05-07] MEDS ORDERED: IOHEXOL 300 MG/ML 75 ML VIAL. IV ONE (20:00)
--- NOTE | 2021-05-07 20:40 | RAD ---
Exam: CT of abdomen and pelvis with contrast INDICATION: Pancreatitis, epigastric pain TECHNIQUE: Sequential axial images through the abdomen and pelvis obtained following the administrati on of 75 mL of Isovue-370 IV contrast. Sagittal and coronal reformatted images were reconstructed fro m the axial data and reviewed. Exposure: One or more of the following in the visualized dose reduction techniques were utilized for this examination: 1. Automated exposure control 2. Adjustment of the MA and/or KV according to patient size 3. Use of iterative of reconstructive technique Comparisons: 09/28/2020 FINDINGS: Heart size is normal. No pericardial effusion. Visualized lung bases are clear. Liver, spleen, and adrenals are unremarkable. Multiloculated cystic lesion at the pancreatic tail and body appears more organized when compared to the prior study in September, with largest component measuring approximately 11.1 x 8.3 cm. No perinephric inflammation or hydronephrosis. No renal or ureteral calculi are identified. Bladder is decompressed not well evaluated. Prostate is not enlarged. Large and small bowel are unremarkable. No free intra-abdominal air or fluid. No obstruction. Abdominal aorta has a normal course and caliber. Abdominal vasculature is patent. No enlarged intra-abdominal lymph nodes are identified. No suspicious osseous lesions or acute fractures. IMPRESSION: Large loculated at the pancreas with mild adjacent fat stranding favored represent acute on chronic p ancreatitis. Electronically signed by: Evan Walker MD (05/07/2021 8:37 PM) [facility] [place]
[2021-05-07 21:28] LABS: BASO # 0.1 x10^3/uL (0.0-0.2); BASO % 1 % (0-3); EOS % 1 % (0-3); HEMATOCRIT 45.4 % (39.0-53.0); HEMOGLOBIN 15.6 g/dL (13.0-17.5); LYMPH # 1.6 x10^3/uL (1.0-4.8); LYMPH % 19 % (24-48); MEAN CORPUSCULAR HEMOGLOBIN 34 pg (25-35); MEAN CORPUSCULAR HGB CONC 34 g/dL (31-37); MEAN CORPUSCULAR VOLUME 98 fL (79-100); MONO # 0.5 x10^3/uL (0.0-1.1); MONO % 6 % (0-9); NEUT % 74 % (31-73); PLATELET COUNT 293 x10^3/uL (140-400); RED BLOOD COUNT 4.64 x10^6/uL (4.30-5.70); RED CELL DISTRIBUTION WIDTH 14.8 % (11.5-14.5); WHITE BLOOD COUNT 8.1 x10^3/uL (4.0-11.0)
[2021-05-07] MEDS ORDERED: CONTRAST GIVEN. MC PRN (21:45)
[2021-05-07 21:54] LABS: CREATININE 0.8 mg/dL (0.7-1.3); GFR 103.2
[2021-05-07] MEDS ORDERED: IV NORMAL SALINE 1,000ML 1,000 ML IV ONE (22:00)
[2021-05-07 22:07] LABS: ALBUMIN 3.1 g/dL (3.4-5.0); ALBUMIN/GLOBULIN RATIO 0.9 (1.0-1.7); C REACTIVE PROTEIN 3.4 mg/L (0-3.3); TOTAL BILIRUBIN 0.5 mg/dL (0.2-1.0); TOTAL PROTEIN 6.7 g/dL (6.4-8.2)
[2021-05-07] MEDS ORDERED: ONDA4TAB7 PO (22:58)
[2021-05-07] MEDS ORDERED: NAPR-514 PO (23:35)
[2021-05-07] MEDS ORDERED: HYDR-2155 PO (23:38)
[2021-05-07 23:45] VITALS: BP 127/76
[2021-05-07] MEDS ORDERED: KETOROLAC 30 MG/ML VIAL. IVP ONE (23:45)
== END 2021-05-08 00:01 | disposition home or self-care (01) ==
LOC: ER 18:50
DX: K85.90 Acute pancreatitis without necrosis or infection, unspecified (principal); F17.210 Nicotine dependence, cigarettes, uncomplicated; M54.5 Low back pain
CPT/HCPCS: 36415; 74177; 80053; 82150; 83605; 83690; 85025; 86140; 96361; 96374; 99285; J1885; J7030; Q9967

== ENCOUNTER → 2021-09-05 | Emergency (ER) | payer MEDICAID ==
[~2021-09-05] VITALS: Ht 165.1 cm; Wt 43.2 kg
[~2021-09-05] MED LIST: HYDR-2155 PO; IOHEXOL 300 MG/ML 75 ML VIAL. IV ONE; IV NORMAL SALINE 1,000ML 1,000 ML IV ONE; IV NORMAL SALINE 1,000ML 1,000 ML IV SCH; IV NORMAL SALINE 50ML 50 ML ONE; MORPHINE SULFATE 2 MG/ML DISP.SYRIN. IV ONE; NAPR-514 PO; ONDA4TAB7 PO; ONDANSETRON PF 4 MG/2 ML VIAL. IVP ONE; PIPERACILLIN/TAZOBACTAM 4.5 GM VIAL IV ONE; PIPERACILLIN/TAZOBACTAM 4.5 GM in IV NORMAL SALINE 50ML 50 ML IV ONE
--- NOTE | 2021-09-05 10:32 | PHYS DOC ---
Past History Past Medical History: Alcoholism, Pancreatitis (DEMETRIUS CHAUDHARY APRN) Past Surgical History: Other Additional Past Surgical Histo: JAW SURGERY, stent in pancreas (DEMETRIUS CHAUDHARY APRN) Alcohol Use: Heavy (DEMETRIUS CHAUDHARY APRN) General Adult EDM: Chief Complaint: ABDOMINAL PAIN HPI: HPI: Patient is a 50-year-old male who presents to the emergency department for bilateral flank and left lower quadrant pain that started 5 weeks ago after [place] [facility] [place] reports that he was seen [facility] 5 weeks ago and had a stent placed pancreatitis. Scheduled to have removed on Tuesday. He did not contact the surgeon but has had pain ever since. He rates his pain 10 out of 10. He is taken Tylenol 6 hours ago. He denies any alcohol use. He denies nausea, vomiting, diarrhea, fevers, dysuria, blood in stools, hematuria. (DEMETRIUS CHAUDHARY APRN) Review of Systems: Review of Systems: 14 body systems of the review of systems have been reviewed. See HPI for pertinent positive and negative responses, otherwise all other systems are negative, nonpertinent or noncontributory (DEMETRIUS CHAUDHARY APRN) Allergies: Allergies: Allergies Coded Allergies Type Severity Reaction Last Updated Verified No Known Drug Allergies 09/13/20 No (DEMETRIUS CHAUDHARY APRN) Physical Exam: PE: Constitutional: Well developed, well nourished, no acute distress, non-toxic appearance. [] HENT: Normocephalic, atraumatic, bilateral external ears normal, oropharynx moist, no oral exudates, nose normal. [] Eyes: PERRL, EOMI, conjunctiva normal, no discharge. [] Neck: Normal range of motion, no stridor Cardiovascular:Heart rate regular rhythm, no murmur [] Lungs & Thorax: Bilateral breath sounds clear to auscultation [] Abdomen: Bowel sounds normal, soft, no tenderness, no masses, no pulsatile masses. [] Skin: Warm, dry, no erythema, no rash. [] Back: No tenderness, bilateral CVA tenderness Extremities: No tenderness, no cyanosis, no clubbing, ROM intact, no edema. [] Neurologic: Alert and oriented X 3, normal motor function, normal sensory function, no focal deficits noted. [] Psychologic: Affect normal, judgement normal, mood normal. [] (DEMETRIUS CHAUDHARY APRN) Current Patient Data: Labs: Laboratory Tests Test 09/05/21 10:43 09/05/21 11:34 09/05/21 12:39 White Blood Count 3.4 x10^3/uL Red Blood Count 4.33 x10^6/uL Hemoglobin 13.0 g/dL Hematocrit 40.2 % Mean Corpuscular Volume 93 fL Mean Corpuscular Hemoglobin 30 pg Mean Corpuscular Hemoglobin Concent 32 g/dL Red Cell Distribution Width 16.6 % Platelet Count 429 x10^3/uL Neutrophils (%) (Auto) 76 % Lymphocytes (%) (Auto) 23 % Monocytes (%) (Auto) 1 % Eosinophils (%) (Auto) 1 % Basophils (%) (Auto) 0 % Neutrophils # (Auto) 2.5 x10^3uL Lymphocytes # (Auto) 0.8 x10^3/uL Monocytes # (Auto) 0.0 x10^3/uL Eosinophils # (Auto) 0.0 x10^3/uL Basophils # (Auto) 0.0 x10^3/uL Sodium Level 133 mmol/L Potassium Level 3.9 mmol/L Chloride Level 95 mmol/L Carbon Dioxide Level 20 mmol/L Anion Gap 18 Blood Urea Nitrogen 16 mg/dL Creatinine 0.8 mg/dL Estimated GFR (Cockcroft-Gault) 103.2 BUN/Creatinine Ratio 20 Glucose Level 125 mg/dL Calcium Level 9.6 mg/dL Total Bilirubin 0.4 mg/dL Aspartate Amino Transf (AST/SGOT) 17 U/L Alanine Aminotransferase (ALT/SGPT) 31 U/L Alkaline Phosphatase 176 U/L Total Protein 7.4 g/dL Albumin 2.9 g/dL Albumin/Globulin Ratio 0.6 Lipase 713 U/L Magnesium Level 1.9 mg/dL Urine Collection Type Unknown Urine Color Yellow Urine Clarity Clear Urine pH 6.0 Urine Specific [place] <=1.005 Urine Protein 30 mg/dl Urine Glucose (UA) Neg mg/dL Urine Ketones (Stick) Neg mg/dL Urine Blood Neg Urine Nitrite Neg Urine Bilirubin Neg Urine Urobilinogen Dipstick 1.0 mg/dL Urine Leukocyte Esterase Neg Urine RBC 0 /HPF Urine WBC 0 /HPF Urine Bacteria 0 /HPF Urine Opiates Screen Neg Urine Methadone Screen Neg Urine Barbiturates Neg Urine Phencyclidine Screen Neg Urine Amphetamine/Methamphetamine Neg Urine Benzodiazepines Screen Neg Urine Cocaine Screen Neg Urine Cannabinoids Screen Neg Urine Ethyl Alcohol Neg Current Medications Medications (Trade) Dose Ordered Sig/Mia Route PRN Reason Start Time Stop Time Status Last Admin Dose Admin Fentanyl Citrate (Fentanyl 2ml Vial) 50 mcg PRN Q30MIN PRN IV PAIN GREATER THAN 3/10 09/05/21 10:30 09/06/21 10:29 09/05/21 13:02 Sodium Chloride 1,000 ml @ 1,000 mls/hr Q1H IV 09/05/21 10:30 09/05/21 11:29 DC 09/05/21 10:35 Iohexol (Omnipaque 300 Mg/ml) 75 ml 1X ONCE IV 09/05/21 10:30 09/05/21 10:31 DC 09/05/21 10:30 Ondansetron HCl (Zofran) 4 mg 1X ONCE IVP 09/05/21 10:45 09/05/21 10:50 DC 09/05/21 10:56 Sodium Chloride 1,000 ml @ 1,000 mls/hr 1X ONCE IV 09/05/21 12:45 09/05/21 13:44 09/05/21 12:44 Piperacillin Sod/ Tazobactam Sod 4.5 gm/Sodium Chloride 50 ml @ 100 mls/hr 1X ONCE IV 09/05/21 13:00 09/05/21 13:29 09/05/21 13:07 Sodium Chloride 50 ml @ As Directed STK-MED ONCE .ROUTE 09/05/21 13:04 09/05/21 13:04 DC Piperacillin Sod/ Tazobactam Sod (Zosyn) 4.5 gm STK-MED ONCE IV 09/05/21 13:04 09/05/21 13:04 DC (DEMETRIUS CHAUDHARY APRN) EKG: EKG: EKG performed at 1026 by ER staff showed sinus tachycardia rate of 151, QTc 387, no STEMI read by Dr. GLASGOW at 1036 [] (DEMETRIUS CHAUDHARY APRN) Radiology/Procedures: Radiology/Procedures: []PROCEDURE: CT ABD PELV W/ IV CONTRST ONLY EXAM: CT Abdomen and Pelvis with IV contrast CLINICAL HISTORY: Reason: ABDOMINAL PAIN HX PANCREATITIS / Spl. Instructions: OMNI 300 75ML / History: . COMPARISON: 05/07/2021 TECHNIQUE: Helical CT of the abdomen and pelvis was performed following the administration of intravenous contrast. Axial, coronal and sagittal reformatted images were generated. PQRS compliance statement - One or more of the following individualized dose reduction techniques were utilized for this study: 1. Automated exposure control 2. Adjustment of the mA and/or kV according to patient size 3. Use of iterative reconstruction technique FINDINGS: Lower Chest: Visualized lung bases are clear. Abdomen and Pelvis: Interval placement of cystogastrostomy tube resulting in decompression of the large cystic lesion at the pancreatic tail. Additional smaller sized multiloculated cystic lesions throughout the pancreatic tail and body are otherwise similar in size and appearance. The pancreas parenchyma appears edematous with mild surrounding pancreatic fat stranding suggestive of acute interstitial edematous pancreatitis Liver is homogeneous. No apparent hepatic lesions. Gallbladder is dilated measuring 3.7 x 8.2 cm with similar circumferential wall thickening without pericholecystic inflammatory changes. No biliary ductal dilation. Adrenal glands, right kidney, and spleen are unremarkable. Left kidney demonstrates normal parenchymal enhancement with similar well-circumscribed low density focus at the mid pole, favoring benign cyst. The stomach, large and small bowel demonstrate no evidence of obstruction there is mucosal thickening and hyperenhancement within the descending and transverse colon suggestive of mild colitis. There is a moderate colonic stool burden. No f ree intra-abdominal air. There is a trace amount of simple appearing fluid along the right pericolic gutter, likely reactive. Abdominal vasculature appears normal in course and caliber. No pathologically enlarged intra-abdominal or pelvic adenopathy. Urinary bladder is unremarkable. The anterior abdominal wall is unremarkable. No suspicious osseous lesions or acute fractures. IMPRESSION: 1. Findings suggestive of acute on chronic pancreatitis. Correlation with lipase levels recommended. Trace amount of simple appearing fluid along the right pericolic gutter, likely reactive. 2. Interval placement of cystogastrostomy resulting in near complete resolution of the large loculated pancreatic cyst. Additional variable sized multiloculated cystic lesions throughout the pancreatic tail and body are otherwise similar in appearance. There is no foci of air with any of these cystic lesions to suggest acute infectious process. 3. Nonspecific mucosal wall thickening and enhancement of the descending and transverse colon suggestive of mild colitis. 4. Dilated gallbladder without evidence of acute inflammatory process. Electronically signed by: Clementine Rios DO (09/05/2021 11:43 AM) [id number] DICTATED AND SIGNED BY: CLEMENTINE RIOS DO DATE: 09/05/21 1109 CC: DEMETRIUS CHAUDHARY APRN; PCP,NO ~MTH0 0 (DEMETRIUS CHAUDHARY APRN) Heart Score: C/O Chest Pain: N/A Risk Factors: Risk Factors: DM, Current or recent (<one month) smoker, HTN, HLP, family history of CAD, obesity. Risk Scores: Score 0 - 3: 2.5% MACE over next 6 weeks - Discharge Home Score 4 - 6: 20.3% MACE over next 6 weeks - Admit for Clinical Observation Score 7 - 10: 72.7% MACE over next 6 weeks - Early Invasive Strategies (DEMETRIUS CHAUDHARY APRN) Course & Med Decision Making: Course & Med Decision Making Pertinent Labs and Imaging studies reviewed. (See chart for details) [] Patient presents with bilateral flank and left lower quadrant pain with a history of pancreatitis, recent pancreatic stent placed at [facility] 5 weeks ago. Work-up in the ER consisted of blood work and urinalysis. Patient was noted to be tachycardic in the ER. Patient treated with pain medication and IV fluids in the ER. Patient's heart rate has improved in the ER following administration of pain medication and fluids however he is still tachycardic. Patient is noted to have mild leukopenia. Lipase level was 713. Sodium was 133. His CT scan of his abdomen and pelvis showed acute on chronic pancreatitis with mild colitis and a dilated gallbladder without inflammatory process. Stent is in place and the fluid from abscess has drained. I spoke to Dr. Mendez with [facility] who is the surgeon who placed stent and he recommended transfer to [facility]. Patient will be transferred TO [facility], [facility], hospitalist Dr. Edmondson. Report given at 1327. Antibiotics ordered. Patient tachycardic but stable at this time, pain controlled. (DEMETRIUS CHAUDHARY APRN) Course & Med Decision Making I was the Attending physician on the above date of service of this patient. This patient was evaluated, examined, treated, and dispositioned from the emergency department by the mid-level practitioner. 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 (DEMETRIUS CHAUDHARY APRN) Departure Departure: Impression: Primary Impression: Acute on chronic pancreatitis Disposition: 02 SHORT TERM HOSPITAL Condition: STABLE Referrals: PCP,NO (PCP) DEMETRIUS CHAUDHARY APRN Sep 05, 2021 10:32 PATRICIA GLASGOW DO Sep 06, 2021 11:16
--- NOTE | 2021-09-05 10:39 | EKG ---
[address] [address] Test Date: 2021-09-05 Test Time: 10:26:28 Pat Name: JOSE LONG Department: Room: Gender: M Sander Hand: FACUNDO : 1970 Requested By: DEMETRIUS CHAUDHARY Order Number: [id number] Reading MD: Deangelo Carmona MD Measurements Intervals [place] Rate: 151 P: 129 CA: 110 QRS: 74 QRSD: 70 T: 76 QT: 244 QTc: 387 Interpretive Statements BASELINE ARTIFACT SUPRAVENTRICULAR TACHYCARDIA - PROBABLE SINUS TACHYCARDIA NON-SPECIFIC ST/T CHANGES Electronically Signed On 09-07-2021 10:36:09 CDT by Deangelo Carmona MD
[2021-09-05 10:57] LABS: BASO % 0 % (0-3); EOS % 1 % (0-3); HEMATOCRIT 40.2 % (39.0-53.0); LYMPH # 0.8 x10^3/uL (1.0-4.8); LYMPH % 23 % (24-48); MEAN CORPUSCULAR HEMOGLOBIN 30 pg (25-35); MEAN CORPUSCULAR HGB CONC 32 g/dL (31-37); MEAN CORPUSCULAR VOLUME 93 fL (79-100); MONO % 1 % (0-9); NEUT # 2.5 x10^3uL (1.8-7.7); NEUT % 76 % (31-73); PLATELET COUNT 429 x10^3/uL (140-400); RED BLOOD COUNT 4.33 x10^6/uL (4.30-5.70); RED CELL DISTRIBUTION WIDTH 16.6 % (11.5-14.5); WHITE BLOOD COUNT 3.4 x10^3/uL (4.0-11.0)
[2021-09-05 11:18] LABS: CALCIUM 9.6 mg/dL (8.5-10.1); CREATININE 0.8 mg/dL (0.7-1.3); GFR 103.2; POTASSIUM 3.9 mmol/L (3.5-5.1)
[2021-09-05 11:24] LABS: ALBUMIN 2.9 g/dL (3.4-5.0); ALBUMIN/GLOBULIN RATIO 0.6 (1.0-1.7); TOTAL BILIRUBIN 0.4 mg/dL (0.2-1.0); TOTAL PROTEIN 7.4 g/dL (6.4-8.2)
--- NOTE | 2021-09-05 11:45 | RAD ---
EXAM: CT Abdomen and Pelvis with IV contrast CLINICAL HISTORY: Reason: ABDOMINAL PAIN HX PANCREATITIS / Spl. Instructions: OMNI 300 75ML / History : . COMPARISON: 05/07/2021 TECHNIQUE: Helical CT of the abdomen and pelvis was performed following the administration of intrave nous contrast. Axial, coronal and sagittal reformatted images were generated. PQRS compliance statement - One or more of the following individualized dose reduction techniques wer e utilized for this study: 1. Automated exposure control 2. Adjustment of the mA and/or kV according to patient size 3. Use of iterative reconstruction technique FINDINGS: Lower Chest: Visualized lung bases are clear. Abdomen and Pelvis: Interval placement of cystogastrostomy tube resulting in decompression of the large cystic lesion at the pancreatic tail. Additional smaller sized multiloculated cystic lesions throughout the pancreatic tail and body are otherwise similar in size and appearance. The pancreas parenchyma appears edematou s with mild surrounding pancreatic fat stranding suggestive of acute interstitial edematous pancreati tis Liver is homogeneous. No apparent hepatic lesions. Gallbladder is dilated measuring 3.7 x 8.2 cm with similar circumferential wall thickening without pericholecystic inflammatory changes. No biliary roselia melinda dilation. Adrenal glands, right kidney, and spleen are unremarkable. Left kidney demonstrates nor mal parenchymal enhancement with similar well-circumscribed low density focus at the mid pole, favori ng benign cyst. The stomach, large and small bowel demonstrate no evidence of obstruction there is mucosal thickening and hyperenhancement within the descending and transverse colon suggestive of mild colitis. There is a moderate colonic stool burden. No free intra-abdominal air. There is a trace amount of simple appe aring fluid along the right pericolic gutter, likely reactive. Abdominal vasculature appears normal in course and caliber. No pathologically enlarged intra-abdomina l or pelvic adenopathy. Urinary bladder is unremarkable. The anterior abdominal wall is unremarkable. No suspicious osseous lesions or acute fractures. IMPRESSION: 1. Findings suggestive of acute on chronic pancreatitis. Correlation with lipase levels recommended. Trace amount of simple appearing fluid along the right pericolic gutter, likely reactive. 2. Interval placement of cystogastrostomy resulting in near complete resolution of the large loculate d pancreatic cyst. Additional variable sized multiloculated cystic lesions throughout the pancreatic tail and body are otherwise similar in appearance. There is no foci of air with any of these cystic l esions to suggest acute infectious process. 3. Nonspecific mucosal wall thickening and enhancement of the descending and transverse colon suggest debby of mild colitis. 4. Dilated gallbladder without evidence of acute inflammatory process. Electronically signed by: Michael Rios DO (09/05/2021 11:43 AM) [id number]
[2021-09-05 13:06] LABS: BARBITURATES NEG (NEG); BENZODIAZEPINES NEG (NEG); CANNABINOIDS NEG (NEG); COCAINE NEG (NEG); METHADONE NEG (NEG); OPIATES NEG (NEG); PHENCYCLIDINE NEG (NEG)
[2021-09-05 13:07] LABS: AMPHETAMINE/METHAMPHETAMINE NEG (NEG)
[2021-09-05 13:09] LABS: BILIRUBIN,URINE NEG (NEG); CLARITY,URINE CLEAR; COLOR,URINE YELLOW; GLUCOSE,URINE NEG (NEG)
[2021-09-05 13:10] LABS: BACTERIA,URINE 0 /HPF (0-FEW); NITRITE,URINE NEG (NEG); RBC,URINE 0 /HPF (0-2); WBC,URINE 0 /HPF (0-4)
[2021-09-05 14:00] VITALS: BP 93/49
== END | disposition short-term general hospital (02) ==
LOC: ER 10:02
DX: K86.1 Other chronic pancreatitis (principal); Z20.822 Contact with and (suspected) exposure to COVID-19
CPT/HCPCS: 36415; 74177; 80053; 80307; 81001; 83690; 83735; 85025; 87426; 93005; 96361; 96365; 96375; 99285; J2270; J2405; J2543; J3010; J7030; Q9967; U0003

== ENCOUNTER 2021-10-28 13:42 | Emergency (ER) | payer MEDICAID, OTHER ==
[~2021-10-28] VITALS: Ht 165.1 cm; Wt 48.0 kg
[~2021-10-28 13:42] MED LIST changes: -IOHEXOL 300 MG/ML 75 ML VIAL. IV ONE; -IV NORMAL SALINE 1,000ML 1,000 ML IV ONE; -IV NORMAL SALINE 1,000ML 1,000 ML IV SCH; -IV NORMAL SALINE 50ML 50 ML ONE; -MORPHINE SULFATE 2 MG/ML DISP.SYRIN. IV ONE; -ONDANSETRON PF 4 MG/2 ML VIAL. IVP ONE; -PIPERACILLIN/TAZOBACTAM 4.5 GM VIAL IV ONE; -PIPERACILLIN/TAZOBACTAM 4.5 GM in IV NORMAL SALINE 50ML 50 ML IV ONE
[2021-10-28] MEDS ORDERED: IV NORMAL SALINE 1,000ML 1,000 ML IV ONE ×2 (14:00→14:45)
--- NOTE | 2021-10-28 14:24 | PHYS DOC ---
Past History Past Medical History: Alcoholism, Pancreatitis Additional Past Medical Histor: pancreatitis Past Surgical History: Other Additional Past Surgical Histo: JAW SURGERY, stent in pancreas Smoking: Greater than 1 pack/day Alcohol Use: Sober Additional Alcohol Information: former drinker, stopped 9 months ago Drug Use: None General Adult EDM: Chief Complaint: ABDOMINAL PAIN HPI: HPI: 51-year-old male with history of alcoholism and pancreatitis presents to the ED with chief complaint of abdominal pain. Yesterday while the patient was lying down, the abdominal pain started. The pain is primarily in the right upper quadrant and right lower quadrant and wraps around to his back. Patient rates the pain a 10 out of 10 in severity, and is constant. The pain is worst when he lies on his left side, and feels better when he lies on his right side. Patient stated he has experienced this type of pain before, approximately 5 times in the past. When the patient experienced this constellation of symptoms in the past, he has been hospitalized. Reports he normally follows with GI at [facility]. Patient reports nausea, vomiting, chills, and diarrhea. Patient denies chest pain and shortness of breath. Patient is resting right lateral recumbent the ED bed in pain, in no acute distress. Review of Systems: Review of Systems: Constitutional: Reports chills Eyes: Denies redness or eye pain HENT: Denies nasal congestion or sore throat Respiratory: Denies cough or shortness of breath Cardiovascular: Denies chest pain or palpitations GI: Reports abdominal pain, nausea and vomiting : Denies dysuria or hematuria Musculoskeletal: Denies back pain or joint pain Integument: Denies rash or skin lesions Neurologic: Denies headache, focal weakness or sensory changes Complete systems were reviewed and found to be within normal limits, except as documented in this note. Current Medications: Current Meds: Current Medications Medications (Trade) Dose Ordered Sig/Mia Start Time Stop Time Status Last Admin Dose Admin Sodium Chloride 1,000 ml @ 1,000 mls/hr 1X ONCE 10/28/21 14:00 10/28/21 14:59 Allergies: Allergies: Allergies Coded Allergies Type Severity Reaction Last Updated Verified No Known Drug Allergies 09/13/20 No Physical Exam: PE: Constitutional: Well developed, well nourished, no acute distress, non-toxic appearance HENT: Normocephalic, atraumatic Eyes: Conjunctiva normal, no discharge Neck: Normal range of motion, supple Lungs & Thorax: No respiratory distress, equal chest rise and fall Abdomen: Soft, upper abdominal tenderness on palpation, no guarding Skin: Warm, dry, no erythema, no rash Extremities: No tenderness, ROM intact, no edema Neurologic: Alert and oriented X 3, no focal deficits noted Psychologic: Affect normal, judgment normal Current Patient Data: Vital Signs: Vital Signs Date Time Temp Pulse Resp B/P (MAP) Pulse Ox O2 Delivery O2 Flow Rate FiO2 10/28/21 13:53 97.7 87 19 129/86 (100) 100 Room Air EKG: EKG: [] Radiology/Procedures: Radiology/Procedures: PROCEDURE: CT ABD PELV W/ IV CONTRST ONLY EXAM: CT Abdomen and Pelvis with IV contrast CLINICAL HISTORY: Reason: Upper abdominal pain, hx of pancreatitis / Spl. Instructions: / History: . COMPARISON: none TECHNIQUE: Helical CT of the abdomen and pelvis was performed following the administration of intravenous contrast. Axial, coronal and sagittal reformatted images were generated. PQRS compliance statement - One or more of the following individualized dose reduction techniques were utilized for this study: 1. Automated exposure control 2. Adjustment of the mA and/or kV according to patient size 3. Use of iterative reconstruction technique FINDINGS: Lower Chest: Visualized lung bases are clear. Calcified left basilar granuloma. Abdomen and Pelvis: There has been interval removal of a cystogastrostomy tube. There is a 1.9 cm cystic lesion adjacent to the pancreatic head appears slightly increased from prior consistent with a pseudocyst. There has been further decompr ession/resolution of the large multiloculated cystic lesions throughout the pancreatic body and tail. The pancreas, appears edematous with mild surrounding peripancreatic fat stranding suggestive of acute on chronic interstitial edematous pancreatitis Liver is normal in size and attenuation. Gallbladder is normal. No significant biliary ductal dilation. The spleen and small adjacent splenule are unremarkable. The adrenal glands are normal. Similar subcentimeter hypoattenuating focus in the polar region of the left kidney. Normal bilateral parenchymal enhancement. No nephrolithiasis or hydronephrosis. The stomach is mildly depressed. There is increased mucosal enhancement throughout the stomach and duodenum with extensive duodenal wall thickening. There is no evidence of bowel obstruction. There is extensive mucosal hyperenhancement and wall thickening of the transverse colon favoring reactive colitis. There is also mild wall thickening of the ascending and descending colon which may be from underdistention or mild colitis. No free intra-abdominal air. No significant intra-abdominal fluid. There is a soft tissue nodular opacity along bilateral pericolic gutters measures measures up to 1 cm on the right and up to 3.1 cm in maximal craniocaudal dimensions on the left. This is decreased in size from the June 06, 2021 exam, this likely represents sequela of complicated fluid collections. No free intra-abdominal air or significant free fluid. There is a small thrombus within the portal vein confluence as seen on axial image 23 and coronal image 19. 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 The thoracic aorta and major branching vessels are normal in course and caliber. No pathologically enlarged intra-abdominal or pelvic adenopathy. Urinary bladder is unremarkable. Anterior abdominal wall is unremarkable. No suspicious osseous lesions or acute fracture. IMPRESSION: 1. Findings suggestive of acute on chronic pancreatitis. Correlation with serum lipase levels recommended. Removal of cystogastrostomy tube with near complete resolution of the large loculated peripancreatic cysts. There is a cystic collection adjacent to the pancreatic head favoring a pseudocyst. There is no foci of air within the cystic lesion to suggest acute infectious process. 2. There is a nonocclusive thrombus within the portal vein confluence. 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 3. Likely sequela of complicated fluid collections demonstrated along both pericolic gutters which appear smaller from the May 07, 2021 exam. Recommend attention on follow-up imaging. 4. Findings suggestive of moderate reactive duodenitis. Nonspecific mucosal wall thickening most pronounced in the transverse colon and also demonstrated in the ascending and descending colon suggestive of mild reactive pancolitis. These findings were discussed with Dr. Mera at 10/28/2021 4:[address] Rios Electronically signed by: Michael Rios DO (10/28/2021 4:23 PM) [facility] Heart Score: C/O Chest Pain: N/A Course & Med Decision Making: Course & Med Decision Making 51-year-old male with history of chronic alcoholism and pancreatitis presents to the ED with chief complaint of abdominal pain. Reports similar to prior episodes of pancreatitis. Pain/nausea addressed. IVF hydration given. Labs obtained and posted to chart. Lipase elevated. CT abd/pelvis with findings consistent for acute on chronic pancreatitis. Patient reports interval improvement of symptoms. Patient offered admission and/or transfer. Patient reports he elects to try to treat as an outpatient and will follow up with his PCP as previously scheduled this week. Patient advised if symptoms persist may be beneficial to present directly to [facility] where his GI specialist is. Patient stable for discharge with outpatient follow-up with PCP/GI. Discussed findings and plan with patient and spouse, who acknowledge understanding and agreement. Iesha Disclaimer: Iesha Disclaimer: This electronic medical record was generated, in whole or in part, using a voice recognition dictation system. Departure Departure: Impression: Primary Impression: Acute on chronic pancreatitis Disposition: HOME / SELF CARE / HOMELESS Condition: STABLE Referrals: PCP,NO (PCP) Patient Instructions: Acute Pancreatitis, [id number], Clear Liquid Diet, Amyf-ak-[employer] Hydrocodone Bit/Acetaminophen (HYDROCODONE-APAP 5-325 ) 1 Each Tablet 0.5-1 TAB PO PRN Q6HRS PRN for PAIN, #10 TAB 0 Refills Prov: KAYLYNN MERA DO 10/28/21 Ondansetron (ONDANSETRON ODT) 4 Mg Tab.rapdis 1 TAB PO PRN Q6-8HRS PRN for NAUSEA, #16 TAB Prov: KAYLYNN MERA DO 10/28/21 KAYLYNN MERA DO Oct 28, 2021 14:24
[2021-10-28 14:41] LABS: CALCIUM 9.5 mg/dL (8.5-10.1); CREATININE 0.9 mg/dL (0.7-1.3); GFR 89.7; POTASSIUM 4.6 mmol/L (3.5-5.1)
[2021-10-28] MEDS ORDERED: ONDANSETRON PF 4 MG/2 ML VIAL. IVP ONE (14:45)
[2021-10-28] MEDS ORDERED: FAMOTIDINE 20 MG/2 ML VIAL IVP ONE (14:45)
[2021-10-28] MEDS ORDERED: IOHEXOL 300 MG/ML 75 ML VIAL. IV ONE (14:45)
[2021-10-28 14:48] LABS: ALBUMIN 3.7 g/dL (3.4-5.0); ALBUMIN/GLOBULIN RATIO 0.8 (1.0-1.7); MAGNESIUM 2.4 mg/dL (1.8-2.4); TOTAL BILIRUBIN 0.8 mg/dL (0.2-1.0); TOTAL PROTEIN 8.3 g/dL (6.4-8.2)
[2021-10-28 14:59] LABS: BASO % 0 % (0-3); EOS % 0 % (0-3); HEMATOCRIT 39.8 % (39.0-53.0); LYMPH % 11 % (24-48); MEAN CORPUSCULAR HEMOGLOBIN 29 pg (25-35); MEAN CORPUSCULAR HGB CONC 33 g/dL (31-37); MEAN CORPUSCULAR VOLUME 89 fL (79-100); MONO # 0.4 x10^3/uL (0.0-1.1); MONO % 4 % (0-9); NEUT # 7.6 x10^3uL (1.8-7.7); NEUT % 84 % (31-73); PLATELET COUNT 270 x10^3/uL (140-400); RED BLOOD COUNT 4.48 x10^6/uL (4.30-5.70); RED CELL DISTRIBUTION WIDTH 18.7 % (11.5-14.5)
[2021-10-28] MEDS ORDERED: CONTRAST GIVEN. MC PRN (15:00)
[2021-10-28] MEDS ORDERED: ONDA4TAB12 PO (16:24)
[2021-10-28] MEDS ORDERED: HYDROcodone/APAP 5/325MG 1 TAB TABLET ONE (16:24)
[2021-10-28] MEDS ORDERED: HYDR-2155 PO (16:24)
--- NOTE | 2021-10-28 16:25 | RAD ---
EXAM: CT Abdomen and Pelvis with IV contrast CLINICAL HISTORY: Reason: Upper abdominal pain, hx of pancreatitis / Spl. Instructions: / History: . COMPARISON: none TECHNIQUE: Helical CT of the abdomen and pelvis was performed following the administration of intrave nous contrast. Axial, coronal and sagittal reformatted images were generated. PQRS compliance statement - One or more of the following individualized dose reduction techniques wer e utilized for this study: 1. Automated exposure control 2. Adjustment of the mA and/or kV according to patient size 3. Use of iterative reconstruction technique FINDINGS: Lower Chest: Visualized lung bases are clear. Calcified left basilar granuloma. Abdomen and Pelvis: There has been interval removal of a cystogastrostomy tube. There is a 1.9 cm cystic lesion adjacent to the pancreatic head appears slightly increased from prior consistent with a pseudocyst. There has been further decompression/resolution of the large multiloculated cystic lesions throughout the pancr eatic body and tail. The pancreas, appears edematous with mild surrounding peripancreatic fat strandi ng suggestive of acute on chronic interstitial edematous pancreatitis Liver is normal in size and attenuation. Gallbladder is normal. No significant biliary ductal dilatio n. The spleen and small adjacent splenule are unremarkable. The adrenal glands are normal. Similar avila bcentimeter hypoattenuating focus in the polar region of the left kidney. Normal bilateral parenchyma l enhancement. No nephrolithiasis or hydronephrosis. The stomach is mildly depressed. There is increased mucosal enhancement throughout the stomach and du odenum with extensive duodenal wall thickening. There is no evidence of bowel obstruction. There is e xtensive mucosal hyperenhancement and wall thickening of the transverse colon favoring reactive colit is. There is also mild wall thickening of the ascending and descending colon which may be from underd istention or mild colitis. No free intra-abdominal air. No significant intra-abdominal fluid. There i s a soft tissue nodular opacity along bilateral pericolic gutters measures measures up to 1 cm on the right and up to 3.1 cm in maximal craniocaudal dimensions on the left. This is decreased in size fro m the June 06, 2021 exam, this likely represents sequela of complicated fluid collections. No free intra-abdominal air or significant free fluid. There is a small thrombus within the portal ve in confluence as seen on axial image 23 and coronal image 19. 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 The thoracic aorta and major branching vessels are normal in course and caliber. No pathologically enlarged intra-abdominal or pelvic adenopathy. Urinary bladder is unremarkable. Anterior abdominal wall is unremarkable. No suspicious osseous lesions or acute fracture. IMPRESSION: 1. Findings suggestive of acute on chronic pancreatitis. Correlation with serum lipase levels recomme nded. Removal of cystogastrostomy tube with near complete resolution of the large loculated peripancr eatic cysts. There is a cystic collection adjacent to the pancreatic head favoring a pseudocyst. Ther e is no foci of air within the cystic lesion to suggest acute infectious process. 2. There is a nonocclusive thrombus within the portal vein confluence. There is cavernous transformat ion of the portal vein with multiple portal venous collaterals. 3. Likely sequela of complicated fluid collections demonstrated along both pericolic gutters which ap pear smaller from the May 07, 2021 exam. Recommend attention on follow-up imaging. 4. Findings suggestive of moderate reactive duodenitis. Nonspecific mucosal wall thickening most pron ounced in the transverse colon and also demonstrated in the ascending and descending colon suggestive of mild reactive pancolitis. These findings were discussed with Dr. Vidal at 10/28/2021 4:[address] Rios Electronically signed by: Michael Rios DO (10/28/2021 4:23 PM) [facility]
[2021-10-28 16:30] VITALS: BP 137/82
[2021-10-28] MEDS ORDERED: HYDROcodone/APAP 5/325MG 1 TAB TABLET PO ONE (16:30)
[2021-10-28 16:53] LABS: BACTERIA,URINE 0 /HPF (0-FEW); BILIRUBIN,URINE SMALL (NEG); CLARITY,URINE CLEAR; COLOR,URINE YELLOW; GLUCOSE,URINE NEG (NEG); NITRITE,URINE NEG (NEG); RBC,URINE 0 /HPF (0-2); SQUAMOUS EPITHELIAL CELL,UR FEW /LPF; WBC,URINE OCC /HPF (0-4)
== END 2021-10-28 16:42 | disposition home or self-care (01) ==
LOC: ER 13:42
DX: K86.1 Other chronic pancreatitis (principal); F10.20 Alcohol dependence, uncomplicated; Z87.891 Personal history of nicotine dependence; Y90.0 Blood alcohol level of less than 20 mg/100 ml
CPT/HCPCS: 36415; 74177; 80053; 81001; 83690; 83735; 85025; 96361; 96374; 96375; 99285; G0480; J2405; J3010; J3490; J7030; Q9967